=== PATIENT | female | born 1950 | race Caucasian/White ===

== ENCOUNTER 2023-08-04 12:18 | Observation (INO) ==
[2023-08-04] MEDS: NS 1,000 ML IV 1,000 ML IV SCH (14:14)
[2023-08-04 14:48] LABS: ALBUMIN 2.7 g/dL (3.4-5.0); CALCIUM 8.5 mg/dL (8.5-10.1); COR CA(FOR HYPOALB) 9.5 mg/dL (8.5-10.1); CREATININE 1.32 mg/dL (0.55-1.02); MAGNESIUM 1.4 mg/dL (2.0-2.9); POTASSIUM 4.6 mmol/L (3.5-5.1); TOTAL PROTEIN 6.1 g/dL (6.4-8.2)
[2023-08-04 15:09] LABS: BASOPHILS # (AUTO) 0.1 X10^3/uL (0.0-0.1); BASOPHILS % (AUTO) 0.8 % (0.2-1.0); EOSINOPHILS # (AUTO) 0.4 x10^3/uL (0.0-0.2); LYMPHOCYTES # (AUTO) 1.1 X10^3/uL (1.3-2.9); LYMPHOCYTES % (AUTO) 12.5 % (21.0-51.0); MEAN CORPUSCULAR HEMOGLOBIN 27.6 pg (27.0-34.0); MEAN CORPUSCULAR HGB CONC 32.4 g/dL (33.0-35.0); MEAN CORPUSCULAR VOLUME 85.2 fL (80.0-100.0); MEAN PLATELET VOLUME 10.5 fL (7.4-11.0); MONOCYTES # (AUTO) 0.4 x10^3/uL (0.3-0.8); MONOCYTES % (AUTO) 4.5 % (0.0-13.0); NEUTROPHILS # (AUTO) 6.7 x10^3/uL (2.2-4.8); NEUTROPHILS % (AUTO) 77.2 % (42.0-75.0); PLATELET COUNT 184 X10^3/uL (150.0-450.0); RED BLOOD COUNT 4.35 X10^6/uL (3.5-5.4); RED CELL DISTRIBUTION WIDTH 15.6 % (11.6-16.5); WHITE BLOOD COUNT 8.7 X10^3/uL (3.6-10.0)
[2023-08-04] MEDS ORDERED: CONSULT PHARMACY - POTASSIUM & MAGNESIUM XX SCH (16:00)
[2023-08-04] MEDS ORDERED: NovoLIN R (or HumuLIN R) SUBCUT PRN (16:09)
[2023-08-04 16:18] LABS: BILIRUBIN,URINE NEGATIVE (NEGATIVE); BLOOD/HEMOGLOBIN,URINE NEGATIVE (NEGATIVE); GLUCOSE, URINE 4+ (NEGATIVE); KETONES,URINE NEGATIVE (NEGATIVE); LEUKOCYTE ESTERASE ,URINE NEGATIVE (NEGATIVE); NITRITES,URINE NEGATIVE (NEGATIVE); PROTEIN,URINE NEGATIVE (NEGATIVE); UROBILINOGEN,URINE NORMAL (NORMAL)
[2023-08-04 16:19] LABS: APPEARANCE,URINE CLEAR (CLEAR); COLOR,URINE YELLOW (YELLOW)
[2023-08-04] MEDS: NS 1,000 ML IV 1,000 ML with MAGNESIUM SULFATE 50% INJ VIAL 1 G IV SCH (17:13)
[2023-08-04] MEDS: FLAGYL IV PREMIX 500 MG BAG 500 MG/100 ML BAG IV SCH (17:14)
[2023-08-04] MEDS ORDERED: PATIENT'S HOME MEDICATION (Alprazolam 0.5 mg tablet) PO PRN (17:30)
--- NOTE | 2023-08-04 17:37 | DR.H&P ---
H&P History & Physical for Day of: H&P Date: 08/04/23 Chief Complaint Chief Complaint: abdominal pain, diarrhea, weakness Allergies Allergies Allergy/AdvReac Type Severity Reaction Status Date / Time No Known Drug Allergies Allergy Verified 08/04/23 14:15 History of Present Illness History of Present Illness: PT IS 72 WF, DIRECT ADMIT FROM DR MORENO OFFICE WITH CO LOWER ABDOMINAL CRAMPING, PAIN WITH DIARRHEA FOR SEVERAL WEEKS. PT STATES SHE WAS SEEN IN ER AND DIAGNOSED WITH COLITIS. PT CO WEAKNESS AND MUSCLE CRAMPS. PT HAS PMH OF DM AND LOW BS IN 50S RECENTLY. PT HAS HTN, OA, SIDRA, MDD, GERD, SPINAL DDD AND NEUROPATHY. PT ADMITTED FOR TREATMENT AND EVALUATION OF ACUTE ILLNESS. Past Medical History Past Medical History: CVA, Diabetes, Hypertension and [place] Past Surgical History Surgical History: Appendectomy, Cholecystectomy and Hysterectomy Family History Family Medical History: Diabetes Mellitus Medications Home Medications: Home Medications Medication Instructions Recorded Confirmed Type bupropion HCl 150 mg 24 hr tablet, 150 mg PO QAM 09/08/22 08/04/23 History extended release buspirone 7.5 mg tablet 7.5 mg PO BID 09/08/22 08/04/23 History famotidine 20 mg tablet 20 mg PO BID 09/08/22 08/04/23 History fenofibrate nanocrystallized 145 145 mg PO QDAY 09/08/22 08/04/23 History mg tablet gabapentin 800 mg tablet 800 mg PO TID 09/08/22 08/04/23 History hydroxychloroquine 200 mg tablet 200 mg PO QDAY 09/08/22 08/04/23 History lisinopril 20 mg tablet 20 mg PO BID 09/08/22 08/04/23 History nebivolol 10 mg tablet 10 mg PO QDAY 09/08/22 08/04/23 History nitroglycerin 0.4 mg sublingual See Rx Instructions .Route 09/08/22 08/04/23 History tablet .COMPLEX PRN Chest Pain pravastatin 40 mg tablet 40 mg PO HS 09/08/22 08/04/23 History alprazolam 0.5 mg tablet 0.5 mg PO TID PRN anxiey 07/27/23 08/04/23 History aspirin 81 mg chewable tablet 81 mg PO QDAY 07/27/23 08/04/23 History cariprazine 1.5 mg capsule 1.5 mg PO QDAY 07/27/23 08/04/23 History (Vraylar) clonidine HCl 0.1 mg tablet 0.1 mg PO BID 07/27/23 08/04/23 History dapagliflozin propanediol 10 mg 10 mg PO QDAY 07/27/23 08/04/23 History tablet (Farxiga) duloxetine 60 mg capsule,delayed 60 mg PO QDAY 07/27/23 08/04/23 History release meclizine 25 mg tablet 25 mg PO TID PRN 07/27/23 08/04/23 History trazodone 100 mg tablet 100 mg PO QPM 07/27/23 08/04/23 History Labs 08/04/23 14:15 08/04/23 14:15 Labs: Laboratory WBC 8.7 X10^3/uL (3.6-10.0) 08/04/23 14:15 RBC 4.35 X10^6/uL (3.5-5.4) 08/04/23 14:15 Hgb 12.0 g/dL (12.0-16.0) 08/04/23 14:15 Hct 37.0 % (36.0-47.0) 08/04/23 14:15 MCV 85.2 fL (80.0-100.0) 08/04/23 14:15 MCH 27.6 pg (27.0-34.0) 08/04/23 14:15 MCHC 32.4 g/dL (33.0-35.0) L 08/04/23 14:15 RDW 15.6 % (11.6-16.5) 08/04/23 14:15 Plt Count 184 X10^3/uL (150.0-450.0) 08/04/23 14:15 MPV 10.5 fL (7.4-11.0) 08/04/23 14:15 Neut % (Auto) 77.2 % (42.0-75.0) H 08/04/23 14:15 Lymph % (Auto) 12.5 % (21.0-51.0) L 08/04/23 14:15 [place] % (Auto) 4.5 % (0.0-13.0) 08/04/23 14:15 Eos % (Auto) 5.0 % (0.9-2.9) H 08/04/23 14:15 Baso % (Auto) 0.8 % (0.2-1.0) 08/04/23 14:15 Neut # (Auto) 6.7 x10^3/uL (2.2-4.8) H 08/04/23 14:15 Lymph # (Auto) 1.1 X10^3/uL (1.3-2.9) L 08/04/23 14:15 [place] # (Auto) 0.4 x10^3/uL (0.3-0.8) 08/04/23 14:15 Eos # (Auto) 0.4 x10^3/uL (0.0-0.2) H 08/04/23 14:15 Baso # (Auto) 0.1 X10^3/uL (0.0-0.1) 08/04/23 14:15 Absolute Nucleated RBC 0.0 /100WBC 08/04/23 14:15 Sodium 132 mmol/L (136-145) L 08/04/23 14:15 Corrected Sodium 141 mmol/L (136-145) 08/04/23 14:15 Potassium 4.6 mmol/L (3.5-5.1) 08/04/23 14:15 Chloride 97 mmol/L (98-107) L 08/04/23 14:15 Carbon Dioxide 30.0 mmol/L (21-32) 08/04/23 14:15 BUN 11 mg/dL (7-18) 08/04/23 14:15 Creatinine 1.32 mg/dL (0.55-1.02) H 08/04/23 14:15 Est GFR (MDRD) Af Amer 51 (>60) L 08/04/23 14:15 Est GFR (MDRD) Non-Af 42 (>60) L 08/04/23 14:15 Glucose 460 mg/dL (65-99) H 08/04/23 14:15 POC Glucose (mg/dL) 390 mg/dL (65-99) H 08/04/23 17:27 Calcium 8.5 mg/dL (8.5-10.1) 08/04/23 14:15 Corrected Calcium 9.5 mg/dL (8.5-10.1) 08/04/23 14:15 Magnesium 1.4 mg/dL (2.0-2.9) L 08/04/23 14:15 Total Bilirubin 0.40 mg/dL (0.2-1.0) 08/04/23 14:15 AST 19 Units/L (15-37) 08/04/23 14:15 ALT 25 Units/L (12-78) 08/04/23 14:15 Alkaline Phosphatase 123 Units/L (46-116) H 08/04/23 14:15 Total Protein 6.1 g/dL (6.4-8.2) L 08/04/23 14:15 Albumin 2.7 g/dL (3.4-5.0) L 08/04/23 14:15 Globulin 3.4 g/dL (2.5-4.5) 08/04/23 14:15 Albumin/Globulin Ratio 0.8 Ratio (1.1-2.1) L 08/04/23 14:15 Specimen Type Clean catch urine 08/04/23 15:57 Urine Color Yellow (YELLOW) 08/04/23 15:57 Urine Appearance Clear (CLEAR) 08/04/23 15:57 Urine pH 6.0 (5.0 - 8.0) 08/04/23 15:57 Ur Specific [place] 1.010 (1.000-1.030) 08/04/23 15:57 Urine Protein Negative (NEGATIVE) 08/04/23 15:57 Urine Glucose (UA) 4+ (NEGATIVE) 08/04/23 15:57 Urine Ketones Negative (NEGATIVE) 08/04/23 15:57 Urine Blood Negative (NEGATIVE) 08/04/23 15:57 Urine Nitrite Negative (NEGATIVE) 08/04/23 15:57 Urine Bilirubin Negative (NEGATIVE) 08/04/23 15:57 Urine Urobilinogen Normal (NORMAL) 08/04/23 15:57 Ur Leukocyte Esterase Negative (NEGATIVE) 08/04/23 15:57 Review of Systems Constitutional: Weakness and Malaise Eyes: No Symptoms Reported ENT: No Symptoms Reported Respiratory: Shortness of Breath Cardiovascular: Palpitations Gastrointestinal: Nausea, Abdominal Pain and Diarrhea Genitourinary: Dysuria Musculoskeletal: Back Pain Skin: No Symptoms Reported Neurological: Weakness Physical Exam Vital Signs: Vital Signs Temperature 97.3 F Pulse Rate [Left Brachial] 78 Respiratory Rate 20 Blood Pressure [Left Arm] 147/64 O2 Sat by Pulse Oximetry 96 Oriented: Normal Eyes: Normal Ear: Normal Nose: Normal Throat: Normal Respiratory: RLL Diminished and LLL Diminished Cardiovascular: Normal Auscultation: Bowel Sounds: Increased Palpation: Normal Tenderness: LUQ and LLQ Skin: Decreased [place]urg[place] Musculoskeletal: Back:Lumbar Psychiatric: Depression Mood Description: Depressed Affect: Depressed Speech Pattern: Clear Assessment/Plan (1) Colitis: Narrative Support Text: IV HYDRATION, STOOL STUDIES ON ADMISSION CT ABD PELVIS WITH CONTRAST IV FLAGYL, VERIFY HOME MEDICATION BS CONTROL, BP MONITORING Status: Acute (2) Diabetes: Status: Acute (3) Hypertension: Status: Acute
[2023-08-04 17:45] LABS: AMYLASE 28 Units/L (25-115); LIPASE 60 Units/L (16-77)
--- NOTE | 2023-08-04 18:02 | RAD ---
EXAM:ACUTE ABDOMEN SERI ESHISTORY:ABDOMINAL PAIN, COLITIS;COMPARISON:None.FINDINGS:The trachea is midline. The cardiac silhouette is unremarkable. The lungs are clear without focal infiltrate or effusion. The bony thorax is unremarkable.Flat plate and upright evaluation of the abdomen demonstrates a normal bowel gas pattern. There is a moderate amount of fecal material throughout the colon. Surgical clips right upper quadrant. No pathological soft tissue mass or calcification can be observed. The bony structures are grossly intact.IMPRESSION:1. No acute cardiopulmonary disease.2. No evidence for acute abdominal pathology identified.THIS IS AN ELECTRONICALLY VERIFIED FINAL REPORT08/04/2023 5:59 PM - Electronically signed by Yohan Quiñones MD
[2023-08-04] MEDS: NovoLIN R (or HumuLIN R) SUBCUT PRN (18:24)
[2023-08-04] MEDS ORDERED: SNACK - Diabetic Appropriate PO SCH (20:00)
[2023-08-04] MEDS ORDERED: ZESTRIL TAB 20 MG ONE (20:18)
[2023-08-04] MEDS: ZOFRAN INJ 4 MG VIAL IVP PRN (20:26)
[2023-08-04] MEDS: PEPCID TAB 20 MG PO SCH (20:30)
[2023-08-04] MEDS: DESYREL PO SCH (20:31)
[2023-08-04] MEDS: PRAVACHOL PO SCH (20:31)
[2023-08-04] MEDS: ZESTRIL TAB 20 MG PO SCH (20:32)
[2023-08-04] MEDS: SNACK - Diabetic Appropriate PO SCH (20:54)
[2023-08-04] MEDS: ALPRAZOLAM ODT PO PRN (23:27)
[2023-08-05] MEDS: TYLENOL 325 MG TAB PO PRN (02:50)
[2023-08-05] MEDS: PROVENTIL NEB TX 0.083% 2.5MG/ 3ML NEB SCH (07:00)
[2023-08-05] MEDS ORDERED: PROVENTIL NEB TX 0.083% 2.5MG/ 3ML NEB PRN (07:00)
[2023-08-05 07:25] LABS: BASOPHILS # (AUTO) 0.1 X10^3/uL (0.0-0.1); BASOPHILS % (AUTO) 1.2 % (0.2-1.0); EOSINOPHILS # (AUTO) 0.8 x10^3/uL (0.0-0.2); EOSINOPHILS % (AUTO) 11.3 % (0.9-2.9); HEMATOCRIT 30.6 % (36.0-47.0); HEMOGLOBIN 10.1 g/dL (12.0-16.0); LYMPHOCYTES % (AUTO) 27.5 % (21.0-51.0); MEAN CORPUSCULAR HEMOGLOBIN 27.8 pg (27.0-34.0); MEAN CORPUSCULAR VOLUME 84.4 fL (80.0-100.0); MEAN PLATELET VOLUME 10.2 fL (7.4-11.0); MONOCYTES # (AUTO) 0.6 x10^3/uL (0.3-0.8); MONOCYTES % (AUTO) 7.7 % (0.0-13.0); NEUTROPHILS # (AUTO) 3.7 x10^3/uL (2.2-4.8); NEUTROPHILS % (AUTO) 52.3 % (42.0-75.0); PLATELET COUNT 171 X10^3/uL (150.0-450.0); RED BLOOD COUNT 3.63 X10^6/uL (3.5-5.4); RED CELL DISTRIBUTION WIDTH 15.5 % (11.6-16.5); WHITE BLOOD COUNT 7.1 X10^3/uL (3.6-10.0)
[2023-08-05 07:36] LABS: ALANINE AMINOTRANSFERASE 16 Units/L (12-78); ALBUMIN 2.1 g/dL (3.4-5.0); ALKALINE PHOSPHATASE 103 Units/L (46-116); ASPARTATE AMINO TRANSFERASE 15 Units/L (15-37); BLOOD UREA NITROGEN 12 mg/dL (7-18); CALCIUM 8.1 mg/dL (8.5-10.1); CARBON DIOXIDE 28.7 mmol/L (21-32); CHLORIDE 105 mmol/L (98-107); COR CA(FOR HYPOALB) 9.6 mg/dL (8.5-10.1); COR NA(FOR HYPERGLY) 139 mmol/L (136-145); GLUCOSE 204 mg/dL (65-99); MAGNESIUM 1.6 mg/dL (2.0-2.9); POTASSIUM 3.7 mmol/L (3.5-5.1); SODIUM 137 mmol/L (136-145); TOTAL PROTEIN 5.4 g/dL (6.4-8.2); eGFR NON BLACK RACES 52 (>60)
[2023-08-05] MEDS ORDERED: NS 100 ML IV 100 ML ONE (08:28)
[2023-08-05] MEDS ORDERED: OMNIPAQUE 350 mg/mL 100 mL BTL 100 ML ONE (08:28)
[2023-08-05] MEDS ORDERED: READI-CAT 2 ONE (08:29)
[2023-08-05] MEDS ORDERED: PATIENT'S HOME MEDICATION (Dapagliflozin Propanediol [Farxiga] 10 mg tablet) PO SCH (09:00)
[2023-08-05] MEDS ORDERED: ZESTRIL TAB 20 MG ONE ×2 (09:23→20:28)
[2023-08-05] MEDS: WELLBUTRIN XL 150 MG (DAILY) PO SCH (09:27)
[2023-08-05] MEDS: LOVENOX INJ 40 MG SYR SC SCH (09:27)
[2023-08-05] MEDS: FARXIGA PO SCH (09:27)
[2023-08-05] MEDS: TRICOR TAB 145 MG PO SCH (09:28)
[2023-08-05] MEDS: PATIENT'S HOME MEDICATION (Cariprazine [Vraylar] 1.5 mg capsule) PO SCH (11:36)
[2023-08-05 12:33] LABS: CRYPTOSPORIDIUM PARVUM ANTIGEN NEGATIVE (NEGATIVE); GIARDIA LAMBLIA ANTIGEN NEGATIVE (NEGATIVE)
--- NOTE | 2023-08-05 14:32 | CT ---
EXAM:ABDCMEN/PELVIS WITH CONHISTORY:LLQ PAIN, COLITIS;COMPARISON:CT abdomen and pelvis 11/18/2020TECHNIQUE:Multiple CT axial images of the abdomen and pelvis were obtained with IV contrast. Coronal and sagittal images were reconstructed. Dose reduction techniques included Automated Exposure Control (AEC) and adjustment of mA and kV.FINDINGS:The lung bases are clear. Heart size is normal.The liver is normal in size and configuration. Surgical clips are present in the gallbladder fossa from a cholecystectomy. There is very mild dilatation of the intrahepatic collecting system, likely a reservoir effect from having had a cholecystectomy. I believe the finding is stable when compared to the non contrasted study 11/18/2020.The spleen is normal in size and shape. The adrenal glands are normal. The pancreas is normal.Renal enhancement is uniform and symmetric with no solid mass. There is no hydronephrosis or significant perirenal edema. The bladder is normally distended. It has no wall thickening or perivesical edema.The bowel is not dilated. There is no wall thickening in the bowel or edema around the bowel. Surgical clips are present from appendectomy. No evidence for acute bowel pathology.Degenerative changes are present in the thoracic spine.IMPRESSION:1. No acute finding or significant abnormalityTHIS IS AN ELECTRONICALLY VERIFIED FINAL REPORT08/05/2023 2:29 PM - Electronically signed by Wale Whitlock MD
[2023-08-05] MEDS: ZITHROMAX TAB 250 MG PO SCH (17:01)
[2023-08-06 08:52] VITALS: BMI 30.2
[2023-08-06] MEDS: ZOFRAN INJ 4 MG VIAL IVP ONE (09:28)
[2023-08-06] MEDS: NORCO 5/325 MG TAB PO ONE (09:28)
[2023-08-06 09:29] VITALS: RESP 18
[2023-08-06] MEDS: ZESTRIL TAB 20 MG ONE (09:29)
[2023-08-06 09:52] VITALS: BP 145/67; PULSE 77; TEMP 98.3; O2SAT 95
--- NOTE | 2023-08-06 11:54 | PCM.DCPLAN ---
DISCHARGE SUMMARY Admission Date Date of Admission: 08/04/23 Discharge Date Discharge Date: 08/06/23 Admission Diagnoses (1) Colitis: Status: Acute (2) Diabetes: Status: Acute (3) Hypertension: Status: Acute Discharge Diagnoses Discharge Diagnosis: ADD GASTRITIS AND CAMPYLOBACTER GASTROENTERITIS - SAME ADMISSION Discharge Medications Discharge Medications: Home Medication List azithromycin 250 mg tablet 500 mg PO DAILY 5 days #10 tabs 08/06/23 [Rx] diphenoxylate-atropine 2.5 mg-0.025 mg tablet (Lomotil) 1 tab PO Q4H PRN Diarrhea #30 tabs 08/06/23 [Rx] ondansetron 8 mg disintegrating tablet 8 mg PO Q8H nausea #30 tabs 08/06/23 [Rx] Prescriptions: azithromycin KEZIA,LUIS diphenoxylate-atropine [Lomotil] KEZIA,LUIS ondansetron KEZIA,[facility] Hospital Course Vital Signs: Vital Signs Temperature 98.3 F Temperature 98.1 F Pulse Rate [Left Brachial] 77 Pulse Rate [Left Brachial] 70 Respiratory Rate 18 Respiratory Rate 18 Respiratory Rate 20 Blood Pressure [Left Arm] 145/67 Blood Pressure [Left Arm] 162/70 O2 Sat by Pulse Oximetry 95 O2 Sat by Pulse Oximetry 94 Latest Lab Results: Laboratory Last Values WBC 7.1 X10^3/uL (3.6-10.0) 08/05/23 07:05 RBC 3.63 X10^6/uL (3.5-5.4) 08/05/23 07:05 Hgb 10.1 g/dL (12.0-16.0) L 08/05/23 07:05 Hct 30.6 % (36.0-47.0) L 08/05/23 07:05 MCV 84.4 fL (80.0-100.0) 08/05/23 07:05 MCH 27.8 pg (27.0-34.0) 08/05/23 07:05 MCHC 33.0 g/dL (33.0-35.0) 08/05/23 07:05 RDW 15.5 % (11.6-16.5) 08/05/23 07:05 Plt Count 171 X10^3/uL (150.0-450.0) 08/05/23 07:05 MPV 10.2 fL (7.4-11.0) 08/05/23 07:05 Neut % (Auto) 52.3 % (42.0-75.0) 08/05/23 07:05 Lymph % (Auto) 27.5 % (21.0-51.0) 08/05/23 07:05 [place] % (Auto) 7.7 % (0.0-13.0) 08/05/23 07:05 Eos % (Auto) 11.3 % (0.9-2.9) H 08/05/23 07:05 Baso % (Auto) 1.2 % (0.2-1.0) H 08/05/23 07:05 Neut # (Auto) 3.7 x10^3/uL (2.2-4.8) 08/05/23 07:05 Lymph # (Auto) 2.0 X10^3/uL (1.3-2.9) 08/05/23 07:05 [place] # (Auto) 0.6 x10^3/uL (0.3-0.8) 08/05/23 07:05 Eos # (Auto) 0.8 x10^3/uL (0.0-0.2) H 08/05/23 07:05 Baso # (Auto) 0.1 X10^3/uL (0.0-0.1) 08/05/23 07:05 Absolute Nucleated RBC 0.0 /100WBC 08/05/23 07:05 Sodium 137 mmol/L (136-145) 08/05/23 06:25 Corrected Sodium 139 mmol/L (136-145) 08/05/23 06:25 Potassium 3.7 mmol/L (3.5-5.1) 08/05/23 06:25 Chloride 105 mmol/L (98-107) 08/05/23 06:25 Carbon Dioxide 28.7 mmol/L (21-32) 08/05/23 06:25 BUN 12 mg/dL (7-18) 08/05/23 06:25 Creatinine 1.10 mg/dL (0.55-1.02) H 08/05/23 06:25 Est GFR (MDRD) Af Amer > 60 (>60) 08/05/23 06:25 Est GFR (MDRD) Non-Af 52 (>60) L 08/05/23 06:25 Glucose 204 mg/dL (65-99) H 08/05/23 06:25 POC Glucose (mg/dL) 191 mg/dL (65-99) H 08/06/23 05:29 Calcium 8.1 mg/dL (8.5-10.1) L 08/05/23 06:25 Corrected Calcium 9.6 mg/dL (8.5-10.1) 08/05/23 06:25 Magnesium 1.6 mg/dL (2.0-2.9) L 08/05/23 06:25 Total Bilirubin 0.30 mg/dL (0.2-1.0) 08/05/23 06:25 AST 15 Units/L (15-37) 08/05/23 06:25 ALT 16 Units/L (12-78) 08/05/23 06:25 Alkaline Phosphatase 103 Units/L (46-116) 08/05/23 06:25 Total Protein 5.4 g/dL (6.4-8.2) L 08/05/23 06:25 Albumin 2.1 g/dL (3.4-5.0) L 08/05/23 06:25 Globulin 3.3 g/dL (2.5-4.5) 08/05/23 06:25 Albumin/Globulin Ratio 0.6 Ratio (1.1-2.1) L 08/05/23 06:25 Amylase 28 Units/L (25-115) 08/04/23 14:15 Lipase 60 Units/L (16-77) 08/04/23 14:15 Specimen Type Clean catch urine 08/04/23 15:57 Urine Color Yellow (YELLOW) 08/04/23 15:57 Urine Appearance Clear (CLEAR) 08/04/23 15:57 Urine pH 6.0 (5.0 - 8.0) 08/04/23 15:57 Ur Specific [place] 1.010 (1.000-1.030) 08/04/23 15:57 Urine Protein Negative (NEGATIVE) 08/04/23 15:57 Urine Glucose (UA) 4+ (NEGATIVE) 08/04/23 15:57 Urine Ketones Negative (NEGATIVE) 08/04/23 15:57 Urine Blood Negative (NEGATIVE) 05/08/24 15:57 Urine Nitrite Negative (NEGATIVE) 08/04/23 15:57 Urine Bilirubin Negative (NEGATIVE) 08/04/23 15:57 Urine Urobilinogen Normal (NORMAL) 08/04/23 15:57 Ur Leukocyte Esterase Negative (NEGATIVE) 08/04/23 15:57 Stool Occult Blood Cancelled 08/05/23 10:50 Stl Occult Blood (IFOB) Negative (NEGATIVE) 08/05/23 10:50 Stl C. diff Tox B Gene Negative (NEGATIVE) 08/05/23 10:50 Stl C. diff [id number] Presumptive negative (NEGATIVE) 08/05/23 10:50 Stool H. pylori Ag Negative (NEGATIVE) 08/05/23 10:50 Cryptosporid parvum Ag Negative (NEGATIVE) 08/05/23 10:50 Giardia lamblia Ag Negative (NEGATIVE) 08/05/23 10:50 Hospital Course: PATIENT IS A 72 YEAR OLD WHITE FEMALE WHO WAS A DIRECT ADMIT FROM DR. MORENO'S OFFICE ON 08/04/23 WITH COMPLAINTS OF LOWER ABDOMINAL CRAMPING WITH DIARRHEA- ONGOING FOR SEVERAL WEEKS. PATIENT HAD REPORTEDLY BEEN SEEN IN LOCAL ER AND DIAGNOSED WITH COLITIS. UPON ADMISSION, WE STARTED THE PATIENT ON IV HYDRATION, IV FLAGYL AND OBTAINED STOOL STUDIES AND CT ABDOMEN AND PELVIS WITH CONTRAST. ADMISSION LABS: HGB 12.0, WBC 8.7, BUN 12/CREATININE 1.10. CT ABDOMEN AND PELVIS SHOWED NO ACUTE FINDING OR SIGNIFICANT ABNORMALITY. STOOL STUDIES OBTAINED YESTERDAY SHOWED POSITIVE FOR CAMPY AND SHE WAS STARTED ON AZITHROMYCIN. AM LABS: HGB 10.1, WBC 7.1, BUN 12/CREATININE 1.10. PATIENT STATES THAT SHE IS FEELING MUCH IMPROVED, SO WE WILL ALLOW HER TO DISCHARGE HOME ON PO ABX, LOMOTIL AND ZOFRAN. SHE WILL NEED TO FOLLOW UP WITH HER PRIMARY CARE PROVIDER AND HAS AN APPOINTMENT SCHEDULED FOR 08/13/23 AT 10:15AM. PLEASE SEE DISCHARGE PLAN FOR LIST OF DISCHARGE MEDICATIONS AND MODIFICATIONS THAT WE MADE, ELECTRONIC MEDICAL RECORD FOR DIAGNOSTIC TESTS AND LABS. THE PATIENT WAS INSTRUCTED TO RETURN TO THE ER IF CONDITION CHANGED OR WORSENED UNEXPECTEDLY.
== END 2023-08-06 11:27 | disposition home health service (06) ==
LOC: MED/SURG
PROVIDERS: ADMIT Internal Medicine; ATTEND Internal Medicine
DX: I10 Essential (primary) hypertension; F41.8 Other specified anxiety disorders; A04.5 Campylobacter enteritis; K29.00 Acute gastritis without bleeding; R26.89 Other abnormalities of gait and mobility; R53.1 Weakness; E11.65 Type 2 diabetes mellitus with hyperglycemia; E87.1 Hypo-osmolality and hyponatremia; Z65.8 Other specified problems related to psychosocial circumstances; R10.84 Generalized abdominal pain

== ENCOUNTER 2023-12-11 12:45 | Observation (INO) ==
[2023-12-11 13:11] VITALS: BMI 28.1
--- NOTE | 2023-12-11 13:15 | DR.CP ---
HPI Time Seen Time Seen by Provider: 12/11/23 13:14 PCP Primary Care Physician: KOMAL White Complaint Chief Complaint:: Pt states that around 8am she woke up this morning with a sudden onset of left sided chest pain described as sharp stabbing in nature. The pt took one nitroglycerin and the pain was completely relieved. Pt also states that she fell a few weeks ago and has had a sore sacrum every since. COVID-19 Coronavirus risk:travel/contact w/high risk person: No Has patient experienced Coronavirus symptoms: No Reviewed Nurses Notes Review: Yes Source History Provided: EMS Mode of Arrival Mode of Arrival: Ambulatory Timing Onset of Chief Complaint: 12/11/23 Location Chest Pain Radiation Location: None Associated Signs and Symptoms Associated Signs and Symptoms: None PMH PMH Past Medical History: Yes Past Medical History: Anxiety, Arthritis, Coronary Artery Disease, CVA, Depression, Diabetes, Dyslipidemia, GERD, Hypertension and [place] Past Surgical History: Yes Surgical History: Appendectomy, Cholecystectomy and Hysterectomy Family History History of Family Medical Conditions: Yes Family Medical History: Diabetes Mellitus, [place], Coronary Artery Disease and Hypertension Social History Does patient currently use any type of tobacco product: No Have you used tobacco products in the last 12 months: No Type of Tobacco Use: None Does any household member use tobacco: No Alcohol Use: None Do you use any recreational Drugs:: No Lives With: Alone Lives Where: Home Travel Risk Coronavirus risk:travel/contact w/high risk person: No Has patient experienced Coronavirus symptoms: No Infectious screening In the last 2 months have you had wt loss of >10#?: NO Have you had fever, night sweats or hemotysis?: No Have you traveled outside the country in the last 6 months?: No Isolation: Standard ROS Review of Systems Constitutional: No Symptoms Reported, Weakness and Fatigue; negative Fever Eyes: No Symptoms Reported ENTM: No Symptoms Reported; negative Nose Discharge or Nose Congestion Respiratoy: No Symptoms Reported; negative Moist Cough or Short of Breath Cardiovascular: No Symptoms Reported Gastrointestinal/Abdominal: No Symptoms Reported; negative Abdominal Pain, Diarrhea or Vomiting Genitourinary: No Symptoms Reported; negative Dysuria Neurological: Weakness; negative Headache or Dizziness Musculoskeletal: No Symptoms Reported; negative Muscle Pain Integumentary: No Symptoms Reported Hematologic/Lymphatic: No Symptoms Reported Endocrine: No Symptoms Reported; negative Increased Thirst or Increased Urine Psychiatric: No Symptoms Reported All Other Systems: Reviewed and Negative PE Vitals Vitals: Vital Signs Pulse Rate 80 Pulse Rate 90 Pulse Rate 91 Pulse Rate 91 Respiratory Rate 18 Respiratory Rate 39 Respiratory Rate 29 Respiratory Rate 27 Respiratory Rate 24 O2 Sat by Pulse Oximetry 95 O2 Sat by Pulse Oximetry 97 General General Appearance: Alert and In No Apparent Distress Head Head Exam: Normal Inspection and Atraumatic Eyes Eye exam: Normal Appearance, PERRL and EOMI; negative Scleral Icterus or Conjunctival Injection ENT ENT Exam: Normal Exam, Normal Oropharynx, Normal External Ear Exam and TM's Normal Bilaterally Chest Chest Inspection: Normal Inspection and Symmetric Chest Wall Rise; negative Tenderness Respiratory Respiratory Exam: Normal Lung Sounds Bilat; negative Accessory Muscle Use, Chest Wall Tenderness or Respiratory Distress Respiratory Exam: Bilateral: Rhonchi Cardiovascular Cardiovascular Exam: Regular Rate, Normal Rhythm and Normal Heart Sounds; negative Systolic Murmur or Diastolic Murmur Pulse: Normal Abdominal Exam Abdominal Exam: Normal Inspection, Normal Bowel Sounds and Soft; negative Tenderness Extremities Extremities Exam: Normal Inspection and Normal Capillary Refill Back Back Exam: Normal Inspection; negative (R) CVA Tenderness or (L) CVA Tenderness Neurologic Neurological Exam: Alert and Oriented X3; negative Motor Sensory Deficit Psychiatric Psychiatric Exam: Normal Affect and Normal Mood Skin Skin Exam: Warm and Intact MDM Differential Diagnosis Differential Diagnosis: Angina, CHF, Myocardial Infarction, Pericarditis, Pleuritis, Pneumonia, Pneumothorax and Pulmonary Embolus COURSE Treatment Treatment: See orders done while patient was in the emergency room. D-dimer is elevated above patient have poor renal function at this time. She is also dehydrated. Patient is being given some IV fluids and will be at admitted to hospital for further management the CTA will be done after IV fluids and improved renal function. Chest pain is intermittent and is not present at this time(8:40 PM). Education/Counseling Education/Counseling: Patient ROR Labs Reviewed Laboratory Results Reviewed?: Yes 12/11/23 13:40 12/11/23 13:40 Laboratory: WBC 13.8 X10^3/uL (3.6-10.0) H 12/11/23 13:40 RBC 3.98 X10^6/uL (3.5-5.4) 12/11/23 13:40 Hgb 10.9 g/dL (12.0-16.0) L 12/11/23 13:40 Hct 33.8 % (36.0-47.0) L 12/11/23 13:40 MCV 84.8 fL (80.0-100.0) 12/11/23 13:40 MCH 27.4 pg (27.0-34.0) 12/11/23 13:40 MCHC 32.3 g/dL (33.0-35.0) L 12/11/23 13:40 RDW 14.6 % (11.6-16.5) 12/11/23 13:40 Plt Count 266 X10^3/uL (150.0-450.0) 12/11/23 13:40 MPV 9.8 fL (7.4-11.0) 12/11/23 13:40 Neut % (Auto) 83.1 % (42.0-75.0) H 12/11/23 13:40 Lymph % (Auto) 6.8 % (21.0-51.0) L 12/11/23 13:40 [place] % (Auto) 7.3 % (0.0-13.0) 12/11/23 13:40 Eos % (Auto) 2.4 % (0.9-2.9) 12/11/23 13:40 Baso % (Auto) 0.4 % (0.2-1.0) 12/11/23 13:40 Neut # (Auto) 11.4 x10^3/uL (2.2-4.8) H 12/11/23 13:40 Lymph # (Auto) 0.9 X10^3/uL (1.3-2.9) L 12/11/23 13:40 [place] # (Auto) 1.0 x10^3/uL (0.3-0.8) H 12/11/23 13:40 Eos # (Auto) 0.3 x10^3/uL (0.0-0.2) H 12/11/23 13:40 Baso # (Auto) 0.1 X10^3/uL (0.0-0.1) 12/11/23 13:40 Absolute Nucleated RBC 0.1 /100WBC 12/11/23 13:40 D-Dimer 0.79 ug/ml (0.0-0.57) H 12/11/23 13:40 Sodium 129 mmol/L (136-145) L 12/11/23 13:40 Corrected Sodium 133 mmol/L (136-145) L 12/11/23 13:40 Potassium 5.0 mmol/L (3.5-5.1) 12/11/23 13:40 Chloride 94 mmol/L (98-107) L 12/11/23 13:40 Carbon Dioxide 29.3 mmol/L (21-32) 12/11/23 13:40 BUN 26 mg/dL (7-18) H 12/11/23 13:40 Creatinine 1.85 mg/dL (0.55-1.02) H 12/11/23 13:40 Est GFR (MDRD) Af Amer 34 (>60) L 12/11/23 13:40 Est GFR (MDRD) Non-Af 28 (>60) L 12/11/23 13:40 Glucose 277 mg/dL (65-99) H 12/11/23 13:40 Calcium 9.3 mg/dL (8.5-10.1) 12/11/23 13:40 Corrected Calcium 10.3 mg/dL (8.5-10.1) H 12/11/23 13:40 Total Bilirubin 0.40 mg/dL (0.2-1.0) 12/11/23 13:40 AST 46 Units/L (15-37) H 12/11/23 13:40 ALT 49 Units/L (12-78) 12/11/23 13:40 Alkaline Phosphatase 143 Units/L (46-116) H 12/11/23 13:40 Creatine Kinase 71 Units/L (26-192) 12/11/23 20:18 Troponin I High Sens 7.5 ng/L (4.0-60.0) 12/11/23 20:18 B-Natriuretic Peptide 24.1 pg/mL (0-79) 12/11/23 13:40 Total Protein 7.5 g/dL (6.4-8.2) 12/11/23 13:40 Albumin 2.8 g/dL (3.4-5.0) L 12/11/23 13:40 Globulin 4.7 g/dL (2.5-4.5) H 12/11/23 13:40 Albumin/Globulin Ratio 0.6 Ratio (1.1-2.1) L 12/11/23 13:40 Specimen Type Clean catch urine 12/11/23 19:04 Urine Color Pale yellow (YELLOW) 12/11/23 19:04 Urine Appearance Clear (CLEAR) 12/11/23 19:04 Urine pH 6.0 (5.0 - 8.0) 12/11/23 19:04 Ur Specific [place] 1.020 (1.000-1.030) 12/11/23 19:04 Urine Protein Negative (NEGATIVE) 12/11/23 19:04 Urine Glucose (UA) 4+ (NEGATIVE) 12/11/23 19:04 Urine Ketones Negative (NEGATIVE) 12/11/23 19:04 Urine Blood Negative (NEGATIVE) 12/11/23 19:04 Urine Nitrite Negative (NEGATIVE) 12/11/23 19:04 Urine Bilirubin Negative (NEGATIVE) 12/11/23 19:04 Urine Urobilinogen Normal (NORMAL) 12/11/23 19:04 Ur Leukocyte Esterase Negative (NEGATIVE) 12/11/23 19:04 XRAY XRAY Interpreted by: Radiologist (Report noted.) Opioid Opioid Risk Tool Age (David box if 16-45): No History of Preadolescent Sexual Abuse: No Total: 0 Total Score Risk Category: Low Risk Copyright: Gopal GRADY predicting aberrant behaviors Discharge Plan Discharge Plan Patient Disposition: 01 HOME, SELF-CARE Condition: Stable Prescriptions: No Action nebivolol 10 mg tablet 10 mg PO QDAY bupropion HCl 150 mg tablet extended release 24 hr 150 mg PO QAM hydroxychloroquine 200 mg tablet 200 mg PO QDAY pravastatin 40 mg tablet 40 mg PO HS gabapentin 800 mg tablet 800 mg PO TID fenofibrate nanocrystallized 145 mg tablet 145 mg PO QDAY buspirone 7.5 mg tablet 7.5 mg PO BID famotidine 20 mg tablet 20 mg PO BID nitroglycerin 0.4 mg tablet, sublingual See Rx Instructions .ROUTE .COMPLEX PRN (Reason: Chest Pain) Rx Instructions: 0.4 mg sublingually every 5 minutes up to 3 doses as needed for chest pain. if no relief go to emergency room clonidine HCl 0.1 mg tablet 0.1 mg PO BID alprazolam 0.5 mg tablet 0.5 mg PO TID PRN (Reason: anxiey) trazodone 100 mg tablet 100 mg PO QPM meclizine 25 mg tablet 25 mg PO TID PRN dapagliflozin propanediol [Farxiga] 10 mg tablet 10 mg PO QDAY aspirin 81 mg Tablet,Chewable 81 mg PO QDAY duloxetine 60 mg capsule,delayed release(DR/EC) 60 mg PO QDAY Vraylar 1.5 mg capsule 1.5 mg PO QDAY ondansetron 8 mg Tablet,Disintegrating 8 mg PO Q8H Qty: 30 0RF tizanidine 4 mg tablet 8 mg PO TID PRN Ozempic 0.25 mg or 0.5 mg (2 mg/3 mL) pen injector 0.5 mg SUBCUT QWEEK Patient Comments: [NO ORIGINAL SIG] Humulin R Regular U-100 Insuln 100 unit/mL solution See Rx Instructions .ROUTE .COMPLEX PRN Patient Comments: [NO ORIGINAL SIG] Rx Instructions: sliding scale Health Concerns: Post Hospitalization: new medications and changes needed to prevent readmission or further decline. Pt educated and given instructions on all concerns. Plan of Treatment: Continue with present treatment and follow up plan. Pt is to keep follow up appointment as instructed and take medications as ordered. Orders to Discharge Patient Discharge Orders: Transfer (Routine); Ordered 12/11/23 Ordered By: GT QUESADA Follow ups/Referrals Follow ups/Referrals: [facility] [Primary Care Provider] - 3 days Instructions Stand Alone Forms: Post Hospital Follow Up Care
--- NOTE | 2023-12-11 13:22 | EKG ---
Test Reason : chest pain Blood Pressure : */* mmHG Vent. Rate : 91 BPM Atrial Rate : 91 BPM P-R Int : 192 ms QRS Dur : 86 ms QT Int : 390 ms P-R-T Axes : 47 77 48 degrees QTc Int : 479 ms Normal sinus rhythm Normal ECG No previous ECGs available Confirmed by Waldemar Walker MD ([id number]) on 12/12/2023 11:21:09 AM Referred By: Confirmed By: Waldemar Walker MD
[2023-12-11 13:56] LABS: BASOPHILS # (AUTO) 0.1 X10^3/uL (0.0-0.1); BASOPHILS % (AUTO) 0.4 % (0.2-1.0); EOSINOPHILS # (AUTO) 0.3 x10^3/uL (0.0-0.2); EOSINOPHILS % (AUTO) 2.4 % (0.9-2.9); HEMATOCRIT 33.8 % (36.0-47.0); HEMOGLOBIN 10.9 g/dL (12.0-16.0); LYMPHOCYTES # (AUTO) 0.9 X10^3/uL (1.3-2.9); LYMPHOCYTES % (AUTO) 6.8 % (21.0-51.0); MEAN CORPUSCULAR HEMOGLOBIN 27.4 pg (27.0-34.0); MEAN CORPUSCULAR HGB CONC 32.3 g/dL (33.0-35.0); MEAN CORPUSCULAR VOLUME 84.8 fL (80.0-100.0); MEAN PLATELET VOLUME 9.8 fL (7.4-11.0); MONOCYTES % (AUTO) 7.3 % (0.0-13.0); NEUTROPHILS # (AUTO) 11.4 x10^3/uL (2.2-4.8); NEUTROPHILS % (AUTO) 83.1 % (42.0-75.0); PLATELET COUNT 266 X10^3/uL (150.0-450.0); RED BLOOD COUNT 3.98 X10^6/uL (3.5-5.4); RED CELL DISTRIBUTION WIDTH 14.6 % (11.6-16.5); WHITE BLOOD COUNT 13.8 X10^3/uL (3.6-10.0)
[2023-12-11 14:13] LABS: ALBUMIN 2.8 g/dL (3.4-5.0); CALCIUM 9.3 mg/dL (8.5-10.1); CARBON DIOXIDE 29.3 mmol/L (21-32); COR CA(FOR HYPOALB) 10.3 mg/dL (8.5-10.1); CREATININE 1.85 mg/dL (0.55-1.02); TOTAL PROTEIN 7.5 g/dL (6.4-8.2)
[2023-12-11] MEDS ORDERED: NITROSTAT SL PRN (17:02)
[2023-12-11] MEDS: ZOFRAN INJ 4 MG VIAL IVP ONE (17:11)
[2023-12-11] MEDS: MORPHINE SULFATE INJ 4 MG IVP ONE ×2 (17:12→21:41)
--- NOTE | 2023-12-11 19:21 | RAD ---
EXAM: CHEST, 1 VIEW HISTORY: chest pain; COMPARISON: None available. FINDINGS: The trachea is midline. The cardiac silhouette is unremarkable . The lungs are clear without focal infiltrate or effusion. The bony thorax is unremarkable. IMPRESSION: No acute cardiopulmonary disease. THIS IS AN ELECTRONICALLY VERIFIED FINAL REPORT 12/11/2023 7:17 PM - Electronically signed by Yohan Quiñones MD
[2023-12-11 19:22] LABS: BILIRUBIN,URINE NEGATIVE (NEGATIVE); BLOOD/HEMOGLOBIN,URINE NEGATIVE (NEGATIVE); GLUCOSE, URINE 4+ (NEGATIVE); KETONES,URINE NEGATIVE (NEGATIVE); LEUKOCYTE ESTERASE ,URINE NEGATIVE (NEGATIVE); NITRITES,URINE NEGATIVE (NEGATIVE); PROTEIN,URINE NEGATIVE (NEGATIVE); UROBILINOGEN,URINE NORMAL (NORMAL)
[2023-12-11 19:26] LABS: APPEARANCE,URINE CLEAR (CLEAR); COLOR,URINE PALE YELLOW (YELLOW)
--- NOTE | 2023-12-11 21:02 | RAD ---
EXAM:SACRUM & COCCYXHISTORY:PT STATES SHE FELL ON TAILBONE ON 12/11/23; UnavailableCOMPARISON:None.FINDINGS:No acute cortical disruption can be observed. The visualized portions of the SI joint on the right and left are unremarkable. The visualized portions of the pelvis are normal as well.IMPRESSION:Negative examTHIS IS AN ELECTRONICALLY VERIFIED FINAL REPORT12/11/2023 8:59 PM - Electronically signed by oYhan Quiñones MD
[2023-12-11] MEDS ORDERED: NS 1,000 ML IV 1,000 ML ONE (21:29)
[2023-12-11] MEDS: MORPHINE SULFATE INJ 4 MG ONE (21:36)
[2023-12-11] MEDS: NS 1,000 ML IV 1,000 ML IV ONE (21:40)
[2023-12-11] MEDS: NS 1,000 ML IV 1,000 ML IV SCH (23:48)
[2023-12-12] MEDS: ULTRAM PO PRN (06:06)
[2023-12-12 06:53] LABS: BASOPHILS % (AUTO) 0.3 % (0.2-1.0); EOSINOPHILS # (AUTO) 0.4 x10^3/uL (0.0-0.2); EOSINOPHILS % (AUTO) 5.4 % (0.9-2.9); HEMATOCRIT 35.9 % (36.0-47.0); HEMOGLOBIN 11.5 g/dL (12.0-16.0); LYMPHOCYTES # (AUTO) 1.1 X10^3/uL (1.3-2.9); LYMPHOCYTES % (AUTO) 13.6 % (21.0-51.0); MEAN CORPUSCULAR HEMOGLOBIN 27.4 pg (27.0-34.0); MEAN CORPUSCULAR HGB CONC 32.1 g/dL (33.0-35.0); MEAN CORPUSCULAR VOLUME 85.2 fL (80.0-100.0); MEAN PLATELET VOLUME 9.9 fL (7.4-11.0); MONOCYTES # (AUTO) 0.8 x10^3/uL (0.3-0.8); MONOCYTES % (AUTO) 9.9 % (0.0-13.0); NEUTROPHILS # (AUTO) 5.7 x10^3/uL (2.2-4.8); NEUTROPHILS % (AUTO) 70.8 % (42.0-75.0); PLATELET COUNT 247 X10^3/uL (150.0-450.0); RED BLOOD COUNT 4.22 X10^6/uL (3.5-5.4); RED CELL DISTRIBUTION WIDTH 14.4 % (11.6-16.5)
[2023-12-12 06:56] LABS: ALBUMIN 2.3 g/dL (3.4-5.0); CALCIUM 8.9 mg/dL (8.5-10.1); CARBON DIOXIDE 28.1 mmol/L (21-32); COR CA(FOR HYPOALB) 10.3 mg/dL (8.5-10.1); CREATININE 1.57 mg/dL (0.55-1.02); MAGNESIUM 2.1 mg/dL (2.0-2.9); POTASSIUM 4.3 mmol/L (3.5-5.1); TOTAL PROTEIN 6.3 g/dL (6.4-8.2)
[2023-12-12] MEDS ORDERED: ALPRAZOLAM ODT PO PRN (09:17)
[2023-12-12] MEDS: CYMBALTA PO SCH (09:38)
[2023-12-12] MEDS: TRICOR TAB 145 MG PO SCH (09:39)
[2023-12-12] MEDS: ASPIRIN 81 MG CHEWTAB PO SCH (09:39)
[2023-12-12] MEDS: PEPCID TAB 20 MG PO SCH (09:39)
[2023-12-12] MEDS: PLAQUENIL PO SCH (09:39)
[2023-12-12] MEDS: PATIENT'S HOME MEDICATION (Cariprazine [Vraylar] 1.5 mg capsule) PO SCH (09:42)
[2023-12-12] MEDS: BUSPIRONE 7.5 MG PO SCH (09:43)
[2023-12-12] MEDS: NYSTATIN POWDER TOP SCH (11:41)
[2023-12-12] MEDS: ZOFRAN INJ 4 MG VIAL IVP PRN (11:41)
[2023-12-12] MEDS: NovoLIN R (or HumuLIN R) SUBCUT PRN (11:44)
[2023-12-12] MEDS ORDERED: PHENERGAN INJ 25 MG IM PRN (13:23)
--- NOTE | 2023-12-12 13:55 | EKG ---
Test Reason : chest pain Blood Pressure : */* mmHG Vent. Rate : 72 BPM Atrial Rate : 72 BPM P-R Int : 170 ms QRS Dur : 84 ms QT Int : 402 ms P-R-T Axes : -24 56 36 degrees QTc Int : 440 ms Normal sinus rhythm Normal ECG When compared with ECG of 11-DEC-2023 13:18, No significant change was found Confirmed by Waldemar Walker MD ([id number]) on 12/13/2023 7:30:05 AM Referred By: Confirmed By: Waldemar Walker MD
[2023-12-12] MEDS: NEURONTIN CAP 400 MG PO SCH (14:15)
--- NOTE | 2023-12-12 15:13 | DR.H&P ---
H&P History & Physical for Day of: H&P Date: 12/12/23 Chief Complaint Chief Complaint: chest pain, SOB History of Present Illness History of Present Illness: Ms De Jesus is a 73y/o female with a PMH of CAD, CVA, DM, HTN, HLD and GERD presented with chest pain. She states she took nitro and that relieved the pain. She also reports intermittent SOB. Er work up showed elevated d-dimer and BUN/Cr. Trop negative. Patient also had hyponatremia. She was started on hydration and admitted for further management. CTA chest was ordered to r/o PE but due to patient's poor renal function, it was not done. She reports feeling better today. Denies chest pain or SOB. She does report having indigestion and heartburn. Her renal function is better today. Patient was adamant about being discharged today as her son is available to pick her up today. Patient's renal function is not adequate for CTA-chest today. Discussed to repeat d-dimer and will decide. Labs/imaging reviewed: -BUN/Cr /1.57 Na 137 D-dimer 0.79 Plan: repeat D-dimer, monitor on tele. Continue hydration. Replace electrolytes as per protocol. Resume home medications. Add protonix. Monitor AM labs/imaging. CTA-chest in the AM. 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 Family History Family Medical History: Diabetes Mellitus, [place], Coronary Artery Disease and Hypertension Social History Does patient currently use any type of tobacco product: No Have you used tobacco products in the last 12 months: No Type of Tobacco Use: None Does any household member use tobacco: No Alcohol Use: None Drug Use: None Medications Home Medications: Home Medications Medication Instructions Recorded Confirmed Type bupropion HCl 150 mg 24 hr tablet, 150 mg PO QAM 09/08/22 12/11/23 History extended release buspirone 7.5 mg tablet 7.5 mg PO BID 09/08/22 12/11/23 History famotidine 20 mg tablet 20 mg PO BID 09/08/22 12/11/23 History fenofibrate nanocrystallized 145 145 mg PO QDAY 09/08/22 12/11/23 History mg tablet gabapentin 800 mg tablet 800 mg PO TID 09/08/22 12/11/23 History hydroxychloroquine 200 mg tablet 200 mg PO QDAY 09/08/22 12/11/23 History nebivolol 10 mg tablet 10 mg PO QDAY 09/08/22 12/11/23 History nitroglycerin 0.4 mg sublingual See Rx Instructions .Route 09/08/22 12/11/23 History tablet .COMPLEX PRN Chest Pain pravastatin 40 mg tablet 40 mg PO HS 09/08/22 12/11/23 History alprazolam 0.5 mg tablet 0.5 mg PO TID PRN anxiey 07/27/23 12/11/23 History aspirin 81 mg chewable tablet 81 mg PO QDAY 07/27/23 12/11/23 History cariprazine 1.5 mg capsule 1.5 mg PO QDAY 07/27/23 12/11/23 History (Vraylar) clonidine HCl 0.1 mg tablet 0.1 mg PO BID 07/27/23 12/11/23 History dapagliflozin propanediol 10 mg 10 mg PO QDAY 07/27/23 12/11/23 History tablet (Farxiga) duloxetine 60 mg capsule,delayed 60 mg PO QDAY 07/27/23 12/11/23 History release meclizine 25 mg tablet 25 mg PO TID PRN 07/27/23 12/11/23 History trazodone 100 mg tablet 100 mg PO QPM 07/27/23 12/11/23 History semaglutide 0.25 mg or 0.5 mg (2 0.5 mg subcut QWEEK 11/24/23 12/11/23 History mg/3 mL) subcutaneous pen injector (Ozempic) tizanidine 4 mg tablet 8 mg PO TID PRN 11/24/23 12/11/23 History insulin regular human 100 unit/mL See Rx Instructions .Route 12/11/23 12/11/23 History injection solution (Humulin R .COMPLEX PRN Regular U-100 Insulin) Allergies Allergies Allergy/AdvReac Type Severity Reaction Status Date / Time No Known Drug Allergies Allergy Verified 11/24/23 04:59 Labs 12/12/23 06:04 12/12/23 06:04 Labs: Laboratory WBC 8.0 X10^3/uL (3.6-10.0) 12/12/23 06:04 RBC 4.22 X10^6/uL (3.5-5.4) 12/12/23 06:04 Hgb 11.5 g/dL (12.0-16.0) L 12/12/23 06:04 Hct 35.9 % (36.0-47.0) L 12/12/23 06:04 MCV 85.2 fL (80.0-100.0) 12/12/23 06:04 MCH 27.4 pg (27.0-34.0) 12/12/23 06:04 MCHC 32.1 g/dL (33.0-35.0) L 12/12/23 06:04 RDW 14.4 % (11.6-16.5) 12/12/23 06:04 Plt Count 247 X10^3/uL (150.0-450.0) 12/12/23 06:04 MPV 9.9 fL (7.4-11.0) 12/12/23 06:04 Neut % (Auto) 70.8 % (42.0-75.0) 12/12/23 06:04 Lymph % (Auto) 13.6 % (21.0-51.0) L 12/12/23 06:04 [place] % (Auto) 9.9 % (0.0-13.0) 12/12/23 06:04 Eos % (Auto) 5.4 % (0.9-2.9) H 12/12/23 06:04 Baso % (Auto) 0.3 % (0.2-1.0) 12/12/23 06:04 Neut # (Auto) 5.7 x10^3/uL (2.2-4.8) H 12/12/23 06:04 Lymph # (Auto) 1.1 X10^3/uL (1.3-2.9) L 12/12/23 06:04 [place] # (Auto) 0.8 x10^3/uL (0.3-0.8) 12/12/23 06:04 Eos # (Auto) 0.4 x10^3/uL (0.0-0.2) H 12/12/23 06:04 Baso # (Auto) 0.0 X10^3/uL (0.0-0.1) 12/12/23 06:04 Absolute Nucleated RBC 0.1 /100WBC 12/12/23 06:04 D-Dimer 1.04 ug/ml (0.0-0.57) H 12/12/23 10:22 Sodium 137 mmol/L (136-145) 12/12/23 06:04 Corrected Sodium 140 mmol/L (136-145) 12/12/23 06:04 Potassium 4.3 mmol/L (3.5-5.1) 12/12/23 06:04 Chloride 103 mmol/L (98-107) 12/12/23 06:04 Carbon Dioxide 28.1 mmol/L (21-32) 12/12/23 06:04 BUN 23 mg/dL (7-18) H 12/12/23 06:04 Creatinine 1.57 mg/dL (0.55-1.02) H 12/12/23 06:04 Est GFR (MDRD) Af Amer 42 (>60) L 12/12/23 06:04 Est GFR (MDRD) Non-Af 34 (>60) L 12/12/23 06:04 Glucose 206 mg/dL (65-99) H 12/12/23 06:04 POC Glucose (mg/dL) 172 mg/dL (65-99) H 12/12/23 06:30 Calcium 8.9 mg/dL (8.5-10.1) 12/12/23 06:04 Corrected Calcium 10.3 mg/dL (8.5-10.1) H 12/12/23 06:04 Magnesium 2.1 mg/dL (2.0-2.9) 12/12/23 06:04 Total Bilirubin 0.90 mg/dL (0.2-1.0) 12/12/23 06:04 AST 275 Units/L (15-37) H 12/12/23 06:04 ALT 135 Units/L (12-78) H 12/12/23 06:04 Alkaline Phosphatase 244 Units/L (46-116) H 12/12/23 06:04 Creatine Kinase 71 Units/L (26-192) 12/11/23 20:18 Troponin I High Sens 7.5 ng/L (4.0-60.0) 12/11/23 20:18 B-Natriuretic Peptide 24.1 pg/mL (0-79) 12/11/23 13:40 Total Protein 6.3 g/dL (6.4-8.2) L 12/12/23 06:04 Albumin 2.3 g/dL (3.4-5.0) L 12/12/23 06:04 Globulin 4.0 g/dL (2.5-4.5) 12/12/23 06:04 Albumin/Globulin Ratio 0.6 Ratio (1.1-2.1) L 12/12/23 06:04 Specimen Type Clean catch urine 12/11/23 19:04 Urine Color Pale yellow (YELLOW) 12/11/23 19:04 Urine Appearance Clear (CLEAR) 12/11/23 19:04 Urine pH 6.0 (5.0 - 8.0) 12/11/23 19:04 Ur Specific [place] 1.020 (1.000-1.030) 12/11/23 19:04 Urine Protein Negative (NEGATIVE) 12/11/23 19:04 Urine Glucose (UA) 4+ (NEGATIVE) 12/11/23 19:04 Urine Ketones Negative (NEGATIVE) 12/11/23 19:04 Urine Blood Negative (NEGATIVE) 12/11/23 19:04 Urine Nitrite Negative (NEGATIVE) 12/11/23 19:04 Urine Bilirubin Negative (NEGATIVE) 12/11/23 19:04 Urine Urobilinogen Normal (NORMAL) 12/11/23 19:04 Ur Leukocyte Esterase Negative (NEGATIVE) 12/11/23 19:04 Review of Systems Constitutional: No Symptoms Reported Eyes: No Symptoms Reported Respiratory: Shortness of Breath Cardiovascular: Chest Pain Gastrointestinal: Nausea Genitourinary: No Symptoms Reported Musculoskeletal: No Symptoms Reported Skin: No Symptoms Reported Neurological: No Symptoms Reported Physical Exam Vital Signs: Vital Signs Temperature 98 F Pulse Rate [Radial] 75 Respiratory Rate 18 Respiratory Rate 18 Blood Pressure [Left Arm] 120/55 O2 Sat by Pulse Oximetry 97 Oriented: Normal Eyes: Normal Throat: Normal, Tonsillar Hypertrophy, Red, Exudate, Dry and Other Respiratory: Diminished Throughout Cardiovascular: Normal Auscultation: Bowel Sounds: Normal Palpation: Normal Tenderness: Normal Skin: Normal Musculoskeletal: Normal Psychiatric: Normal Affect: Normal Speech Pattern: Clear and Appropriate Assessment/Plan (1) Chest pain, rule out acute myocardial infarction: Status: Acute (2) Dehydration: Status: Acute (3) KANA (acute kidney injury): Status: Acute (4) Hyponatremia: Status: Acute (5) Hypertension: Qualifiers: Hypertension type: primary hypertension Qualified Code(s): I10 - Essential (primary) hypertension Status: Acute Review H&P Reviewed: Yes Patient was examined?: Yes
[2023-12-12] MEDS: ASPIRIN 81 MG CHEWTAB PO ONE (15:48)
[2023-12-12] MEDS: PROTONIX TAB 40 MG PO SCH (16:15)
[2023-12-12] MEDS: DESYREL PO SCH (21:45)
[2023-12-12] MEDS: SNACK - Diabetic Appropriate PO SCH (22:52)
[2023-12-13 05:44] LABS: BASOPHILS % (AUTO) 0.4 % (0.2-1.0); EOSINOPHILS # (AUTO) 0.4 x10^3/uL (0.0-0.2); EOSINOPHILS % (AUTO) 5.9 % (0.9-2.9); HEMATOCRIT 33.7 % (36.0-47.0); HEMOGLOBIN 10.8 g/dL (12.0-16.0); LYMPHOCYTES # (AUTO) 1.4 X10^3/uL (1.3-2.9); LYMPHOCYTES % (AUTO) 21.5 % (21.0-51.0); MEAN CORPUSCULAR HEMOGLOBIN 27.4 pg (27.0-34.0); MEAN CORPUSCULAR HGB CONC 32.2 g/dL (33.0-35.0); MEAN CORPUSCULAR VOLUME 85.3 fL (80.0-100.0); MEAN PLATELET VOLUME 8.9 fL (7.4-11.0); MONOCYTES # (AUTO) 0.7 x10^3/uL (0.3-0.8); MONOCYTES % (AUTO) 10.9 % (0.0-13.0); NEUTROPHILS % (AUTO) 61.3 % (42.0-75.0); PLATELET COUNT 249 X10^3/uL (150.0-450.0); RED BLOOD COUNT 3.95 X10^6/uL (3.5-5.4); RED CELL DISTRIBUTION WIDTH 14.5 % (11.6-16.5); WHITE BLOOD COUNT 6.5 X10^3/uL (3.6-10.0)
[2023-12-13 05:58] LABS: ALANINE AMINOTRANSFERASE 75 Units/L (12-78); ALBUMIN 2.2 g/dL (3.4-5.0); ALKALINE PHOSPHATASE 186 Units/L (46-116); ASPARTATE AMINO TRANSFERASE 67 Units/L (15-37); BLOOD UREA NITROGEN 14 mg/dL (7-18); CALCIUM 8.4 mg/dL (8.5-10.1); CARBON DIOXIDE 23.1 mmol/L (21-32); CHLORIDE 105 mmol/L (98-107); COR CA(FOR HYPOALB) 9.8 mg/dL (8.5-10.1); COR NA(FOR HYPERGLY) 140 mmol/L (136-145); CREATININE 1.13 mg/dL (0.55-1.02); GLUCOSE 222 mg/dL (65-99); MAGNESIUM 1.7 mg/dL (2.0-2.9); POTASSIUM 4.1 mmol/L (3.5-5.1); SODIUM 137 mmol/L (136-145); eGFR NON BLACK RACES 50 (>60)
[2023-12-13] MEDS ORDERED: CONSULT PHARMACY - POTASSIUM & MAGNESIUM XX SCH (07:00)
[2023-12-13] MEDS: LOVENOX INJ 40 MG SYR SC SCH (10:22)
[2023-12-13] MEDS: PERCOCET TAB 5/325 MG PO PRN (10:22)
--- NOTE | 2023-12-13 11:52 | CT ---
EXAMINATION:CTA, CHESTHISTORY:CHEST PAIN, HTN, DM;COMPARISON:CT thorax 10/21/2022TECHNIQUE:Contiguous axial CT images of the thorax following intravenous contrast. Images are reviewed in the axial imaging plane with post processing thick slab MIP/3D volume images at a workstation.The above CT scan was done with automated exposure control and the mA and kV was adjusted to obtain quality images according to patient size.FINDINGS:The lungs are expanded. Subtle interstitial alveolar opacities scattered in both lungs. Small bilateral pleural effusions in the dependent posterior pleural spaces. The central airways are patent.Mild multichamber cardiac enlargement. Coronary artery calcifications. Normal enhancement of the central pulmonary arteries. No evidence of thoracic aortic aneurysm or dissection. Scattered arterial vascular calcifications of the aorta and branch vessels. No pericardial effusion.[id number] spondylosis.IMPRESSION:Subtle interstitial alveolar opacities scattered in both lungs with small bilateral pleural effusions.No evidence of acute pulmonary embolism.Mild cardiomegaly, coronary artery calcifications.THIS IS AN ELECTRONICALLY VERIFIED FINAL REPORT12/13/2023 11:39 AM - Electronically signed by Madie Weber MD
[2023-12-13] MEDS: LASIX IVP ONE (12:30)
[2023-12-13] MEDS: WELLBUTRIN XL 150 MG (DAILY) PO SCH (12:31)
[2023-12-13] MEDS: MAG-OX TAB PO SCH (12:32)
[2023-12-13] MEDS: ZITHROMAX INJ 500 MG VIAL 500 MG in NS 250 ML IV 250 ML IV SCH (12:33)
[2023-12-13] MEDS: XOPENEX 1.25 MG/3 ML NEBULE NEB SCH (16:26)
[2023-12-13] MEDS: PULMICORT NEB TX 0.5 MG NEB SCH (21:14)
[2023-12-14 06:45] LABS: BASOPHILS % (AUTO) 0.7 % (0.2-1.0); EOSINOPHILS # (AUTO) 0.5 x10^3/uL (0.0-0.2); EOSINOPHILS % (AUTO) 8.8 % (0.9-2.9); HEMATOCRIT 33.9 % (36.0-47.0); HEMOGLOBIN 10.9 g/dL (12.0-16.0); LYMPHOCYTES # (AUTO) 1.5 X10^3/uL (1.3-2.9); LYMPHOCYTES % (AUTO) 23.8 % (21.0-51.0); MEAN CORPUSCULAR HEMOGLOBIN 27.4 pg (27.0-34.0); MEAN CORPUSCULAR HGB CONC 32.2 g/dL (33.0-35.0); MEAN CORPUSCULAR VOLUME 85.2 fL (80.0-100.0); MEAN PLATELET VOLUME 10.1 fL (7.4-11.0); MONOCYTES # (AUTO) 0.8 x10^3/uL (0.3-0.8); MONOCYTES % (AUTO) 12.9 % (0.0-13.0); NEUTROPHILS # (AUTO) 3.3 x10^3/uL (2.2-4.8); NEUTROPHILS % (AUTO) 53.8 % (42.0-75.0); PLATELET COUNT 273 X10^3/uL (150.0-450.0); RED BLOOD COUNT 3.97 X10^6/uL (3.5-5.4); RED CELL DISTRIBUTION WIDTH 14.4 % (11.6-16.5); WHITE BLOOD COUNT 6.2 X10^3/uL (3.6-10.0)
[2023-12-14] MEDS ORDERED: MILK OF MAGNESIA PO PRN (06:48)
[2023-12-14 06:50] LABS: ALBUMIN 2.3 g/dL (3.4-5.0); CALCIUM 8.4 mg/dL (8.5-10.1); CARBON DIOXIDE 26.5 mmol/L (21-32); COR CA(FOR HYPOALB) 9.8 mg/dL (8.5-10.1); CREATININE 1.15 mg/dL (0.55-1.02); MAGNESIUM 1.7 mg/dL (2.0-2.9); POTASSIUM 3.9 mmol/L (3.5-5.1); TOTAL PROTEIN 6.2 g/dL (6.4-8.2)
[2023-12-14] MEDS ORDERED: CONSULT PHARMACY - POTASSIUM & MAGNESIUM XX SCH (07:00)
--- NOTE | 2023-12-14 07:27 | RAD ---
EXAMINATION:CHEST, 1 VIEWHISTORY:PNEUMONIA; CAD, CVA, DM, HTN, NV, GERD SX: APPY, BARBARA, HYST .COMPARISON STUDY:None.TECHNIQUE:Single portable AP view chestFINDINGS:Lungs are expanded. Streaky opacity left pulmonary base. Mild cardiac silhouette enlargement. Normal pulmonary vascular pattern. Bones are intact.IMPRESSION:Streaky opacity left pulmonary base with mild cardiac silhouette enlargement.THIS IS AN ELECTRONICALLY VERIFIED FINAL REPORT12/14/2023 7:24 AM - Electronically signed by Madie Weber MD
[2023-12-14] MEDS: MAG-OX TAB PO SCH (09:15)
[2023-12-14 10:21] VITALS: BP 148/81; PULSE 84; RESP 18; TEMP 98.3; O2SAT 98
[2023-12-14] MEDS: DULCOLAX TAB EC 5 MG PO ONE (10:30)
== END 2023-12-14 12:50 | disposition home health service (06) ==
LOC: ER 12:45 → MED/SURG 12:45
PROVIDERS: ADMIT Internal Medicine; ATTEND Internal Medicine
DX: J90 Pleural effusion, not elsewhere classified; E78.5 Hyperlipidemia, unspecified; I10 Essential (primary) hypertension; N17.8 Other acute kidney failure; R07.89 Other chest pain; M54.89 Other dorsalgia; R26.89 Other abnormalities of gait and mobility; K21.9 Gastro-esophageal reflux disease without esophagitis; E86.0 Dehydration; Z86.73 Personal history of transient ischemic attack (TIA), and cerebral infarction without residual deficits; E11.65 Type 2 diabetes mellitus with hyperglycemia; I25.10 Atherosclerotic heart disease of native coronary artery without angina pectoris; Z91.81 History of falling; R06.02 Shortness of breath; F41.8 Other specified anxiety disorders; R53.1 Weakness; R79.1 Abnormal coagulation profile; E87.1 Hypo-osmolality and hyponatremia

== ENCOUNTER 2023-12-20 12:53 | Observation (INO) ==
--- NOTE | 2023-12-20 14:26 | EKG ---
Test Reason : sob, palpitations Blood Pressure : */* mmHG Vent. Rate : 104 BPM Atrial Rate : 104 BPM P-R Int : 164 ms QRS Dur : 80 ms QT Int : 352 ms P-R-T Axes : 11 91 50 degrees QTc Int : 462 ms Sinus tachycardia Rightward axis Borderline ECG When compared with ECG of 12-DEC-2023 13:40, small axis change Confirmed by Waldemar Walker MD ([id number]) on 12/20/2023 2:35:32 PM Referred By: Confirmed By: Waldemar Walker MD
--- NOTE | 2023-12-20 14:53 | RAD ---
EXAM:CHEST, 1 VIEWHISTORY:palpitations;COMPARISON:Prio r study or studies were utilized for comparison during interpretation with the most relevant dated 12/14/2023TECHNIQUE:CHEST, 1 VIEWFINDINGS:Chest:Lines and tubes: NoneMediastinum: Cardiac and mediastinal shadow is within normal limits for size and contour.Pulmonary vessels: No pulmonary vascular congestion.Lung beard: No suspicious airspace opacity.Pleura: No effusion. No pneumothorax.Bones and soft tissues: No acute osseous or soft tissue abnormality.IMPRESSION:1. No acute cardiopulmonary abnormalityTHIS IS AN ELECTRONICALLY VERIFIED FINAL REPORT12/20/2023 2:50 PM - Electronically signed by Jose David Smith MD
[2023-12-20 16:07] LABS: BASOPHILS # (AUTO) 0.1 X10^3/uL (0.0-0.1); BASOPHILS % (AUTO) 0.5 % (0.2-1.0); EOSINOPHILS # (AUTO) 0.3 x10^3/uL (0.0-0.2); EOSINOPHILS % (AUTO) 2.9 % (0.9-2.9); HEMATOCRIT 37.6 % (36.0-47.0); LYMPHOCYTES # (AUTO) 1.5 X10^3/uL (1.3-2.9); MEAN CORPUSCULAR HEMOGLOBIN 26.9 pg (27.0-34.0); MEAN CORPUSCULAR HGB CONC 31.8 g/dL (33.0-35.0); MEAN CORPUSCULAR VOLUME 84.4 fL (80.0-100.0); MEAN PLATELET VOLUME 9.2 fL (7.4-11.0); MONOCYTES # (AUTO) 0.5 x10^3/uL (0.3-0.8); MONOCYTES % (AUTO) 4.5 % (0.0-13.0); NEUTROPHILS # (AUTO) 9.2 x10^3/uL (2.2-4.8); NEUTROPHILS % (AUTO) 79.1 % (42.0-75.0); PLATELET COUNT 343 X10^3/uL (150.0-450.0); RED BLOOD COUNT 4.45 X10^6/uL (3.5-5.4); RED CELL DISTRIBUTION WIDTH 14.8 % (11.6-16.5); WHITE BLOOD COUNT 11.6 X10^3/uL (3.6-10.0)
[2023-12-20 16:08] VITALS: BMI 31.2
[2023-12-20 16:24] LABS: ALBUMIN 3.3 g/dL (3.4-5.0); CALCIUM 9.7 mg/dL (8.5-10.1); CARBON DIOXIDE 32.1 mmol/L (21-32); COR CA(FOR HYPOALB) 10.3 mg/dL (8.5-10.1); CREATININE 1.42 mg/dL (0.55-1.02); POTASSIUM 3.9 mmol/L (3.5-5.1); TOTAL PROTEIN 7.6 g/dL (6.4-8.2)
[2023-12-20] MEDS ORDERED: PATIENT'S HOME MEDICATION (Gabapentin 800 mg tablet) PO PRN (17:41)
--- NOTE | 2023-12-20 17:52 | DR.H&P ---
H&P History & Physical for Day of: H&P Date: 12/20/23 Chief Complaint Chief Complaint: heart racing History of Present Illness History of Present Illness: PT IS [id number], DIRECT ADMIT FROM DR MORENO OFFICE WITH NEW ONSET TACHYCARDIA WITH CO WEAKNESS AND SOB. PT HAD PMH OF HTN, DM, OA, HYPERLIPIDEMIA AND SIDRA. PT REPORTS SHE TAKES BYSTOLIC FOR BP CONTROL. PT'S HR IN OFFICE WAS 140-150 WITH OUT IMPROVEMENT AFTER MONITORING. PT DENIES ANY FEVER OR FLU LIKE SYMPTOMS. Past Medical History Past Medical History: Anxiety, Arthritis, Coronary Artery Disease, CVA, Depression, Diabetes, Dyslipidemia, GERD, Hypertension and WI Past Surgical History Surgical History: Appendectomy, CABINET MOUNTER Surgery and Hysterectomy Family History Family Medical History: Diabetes Mellitus, [place], Coronary Artery Disease and Hypertension Social History Does patient currently use any type of tobacco product: No Type of Tobacco Use: None Does any household member use tobacco: No Alcohol Use: None Drug Use: None Medications Home Medications: Home Medications Medication Instructions Recorded Confirmed Type bupropion HCl 150 mg 24 hr tablet, 150 mg PO QAM 09/08/22 12/20/23 History extended release buspirone 7.5 mg tablet 7.5 mg PO BID 09/08/22 12/20/23 History famotidine 20 mg tablet 20 mg PO BID 09/08/22 12/20/23 History fenofibrate nanocrystallized 145 145 mg PO QDAY 09/08/22 12/20/23 History mg tablet gabapentin 800 mg tablet 800 mg PO TID 09/08/22 12/20/23 History hydroxychloroquine 200 mg tablet 200 mg PO QDAY 09/08/22 12/20/23 History nebivolol 10 mg tablet 10 mg PO QDAY 09/08/22 12/20/23 History nitroglycerin 0.4 mg sublingual See Rx Instructions .Route 09/08/22 12/20/23 History tablet .COMPLEX PRN Chest Pain pravastatin 40 mg tablet 40 mg PO HS 09/08/22 12/20/23 History alprazolam 0.5 mg tablet 0.5 mg PO TID PRN Anxiety 07/27/23 12/20/23 History aspirin 81 mg chewable tablet 81 mg PO QDAY 07/27/23 12/20/23 History cariprazine 1.5 mg capsule 1.5 mg PO QDAY 07/27/23 12/20/23 History (Vraylar) clonidine HCl 0.1 mg tablet 0.1 mg PO BID 07/27/23 12/20/23 History dapagliflozin propanediol 10 mg 10 mg PO QDAY 07/27/23 12/20/23 History tablet (Farxiga) duloxetine 60 mg capsule,delayed 60 mg PO QDAY 07/27/23 12/20/23 History release meclizine 25 mg tablet 25 mg PO TID PRN 07/27/23 12/20/23 History trazodone 100 mg tablet 100 mg PO QPM 07/27/23 12/20/23 History semaglutide 0.25 mg or 0.5 mg (2 0.5 mg subcut QWEEK 11/24/23 12/20/23 History mg/3 mL) subcutaneous pen injector (Ozempic) tizanidine 4 mg tablet 8 mg PO TID PRN 11/24/23 12/20/23 History insulin regular human 100 unit/mL See Rx Instructions .Route 12/11/23 12/20/23 History injection solution (Humulin R .COMPLEX PRN Regular U-100 Insulin) Allergies Allergies Allergy/AdvReac Type Severity Reaction Status Date / Time No Known Drug Allergies Allergy Verified 11/24/23 04:59 Labs 12/20/23 15:45 12/20/23 15:45 Labs: Laboratory WBC 11.6 X10^3/uL (3.6-10.0) H 12/20/23 15:45 RBC 4.45 X10^6/uL (3.5-5.4) 12/20/23 15:45 Hgb 12.0 g/dL (12.0-16.0) 12/20/23 15:45 Hct 37.6 % (36.0-47.0) 12/20/23 15:45 MCV 84.4 fL (80.0-100.0) 12/20/23 15:45 MCH 26.9 pg (27.0-34.0) L 12/20/23 15:45 MCHC 31.8 g/dL (33.0-35.0) L 12/20/23 15:45 RDW 14.8 % (11.6-16.5) 12/20/23 15:45 Plt Count 343 X10^3/uL (150.0-450.0) 12/20/23 15:45 MPV 9.2 fL (7.4-11.0) 12/20/23 15:45 Neut % (Auto) 79.1 % (42.0-75.0) H 12/20/23 15:45 Lymph % (Auto) 13.0 % (21.0-51.0) L 12/20/23 15:45 [place] % (Auto) 4.5 % (0.0-13.0) 12/20/23 15:45 Eos % (Auto) 2.9 % (0.9-2.9) 12/20/23 15:45 Baso % (Auto) 0.5 % (0.2-1.0) 12/20/23 15:45 Neut # (Auto) 9.2 x10^3/uL (2.2-4.8) H 12/20/23 15:45 Lymph # (Auto) 1.5 X10^3/uL (1.3-2.9) 12/20/23 15:45 [place] # (Auto) 0.5 x10^3/uL (0.3-0.8) 12/20/23 15:45 Eos # (Auto) 0.3 x10^3/uL (0.0-0.2) H 12/20/23 15:45 Baso # (Auto) 0.1 X10^3/uL (0.0-0.1) 12/20/23 15:45 Absolute Nucleated RBC 0.0 /100WBC 12/20/23 15:45 Sodium 133 mmol/L (136-145) L 12/20/23 15:45 Corrected Sodium 138 mmol/L (136-145) 12/20/23 15:45 Potassium 3.9 mmol/L (3.5-5.1) 12/20/23 15:45 Chloride 97 mmol/L (98-107) L 12/20/23 15:45 Carbon Dioxide 32.1 mmol/L (21-32) H 12/20/23 15:45 BUN 27 mg/dL (7-18) H 12/20/23 15:45 Creatinine 1.42 mg/dL (0.55-1.02) H 12/20/23 15:45 Est GFR (MDRD) Af Amer 47 (>60) L 12/20/23 15:45 Est GFR (MDRD) Non-Af 39 (>60) L 12/20/23 15:45 Glucose 290 mg/dL (65-99) H 12/20/23 15:45 Calcium 9.7 mg/dL (8.5-10.1) 12/20/23 15:45 Corrected Calcium 10.3 mg/dL (8.5-10.1) H 12/20/23 15:45 Magnesium 1.7 mg/dL (2.0-2.9) L 12/20/23 15:45 Total Bilirubin 0.50 mg/dL (0.2-1.0) 12/20/23 15:45 AST 15 Units/L (15-37) 12/20/23 15:45 ALT 22 Units/L (12-78) 12/20/23 15:45 Alkaline Phosphatase 121 Units/L (46-116) H 12/20/23 15:45 Creatine Kinase 23 Units/L (26-192) L 12/20/23 15:45 Troponin I High Sens 14.7 ng/L (4.0-60.0) 12/20/23 15:45 B-Natriuretic Peptide 23.3 pg/mL (0-79) 12/20/23 15:45 Total Protein 7.6 g/dL (6.4-8.2) 12/20/23 15:45 Albumin 3.3 g/dL (3.4-5.0) L 12/20/23 15:45 Globulin 4.3 g/dL (2.5-4.5) 12/20/23 15:45 Albumin/Globulin Ratio 0.8 Ratio (1.1-2.1) L 12/20/23 15:45 Review of Systems Constitutional: Weakness Eyes: No Symptoms Reported ENT: No Symptoms Reported Respiratory: SOB with Excertion Cardiovascular: Palpitations Gastrointestinal: Nausea Genitourinary: Frequency Musculoskeletal: Back Pain Skin: No Symptoms Reported Neurological: Weakness Physical Exam Vital Signs: Vital Signs Temperature 99.1 F Pulse Rate 84 Pulse Rate 84 Pulse Rate 86 Pulse Rate 86 Pulse Rate 87 Pulse Rate 87 Pulse Rate 106 Pulse Rate 105 Pulse Rate 104 Pulse Rate 104 Pulse Rate 105 Respiratory Rate 21 Respiratory Rate 21 Respiratory Rate 22 Respiratory Rate 20 Respiratory Rate 15 Respiratory Rate 16 Respiratory Rate 17 Respiratory Rate 18 Respiratory Rate 19 Respiratory Rate 17 Respiratory Rate 23 Blood Pressure 153/71 Blood Pressure 158/66 Blood Pressure 146/66 Blood Pressure 145/64 O2 Sat by Pulse Oximetry 98 O2 Sat by Pulse Oximetry 98 O2 Sat by Pulse Oximetry 100 O2 Sat by Pulse Oximetry 99 O2 Sat by Pulse Oximetry 99 O2 Sat by Pulse Oximetry 100 O2 Sat by Pulse Oximetry 100 O2 Sat by Pulse Oximetry 97 O2 Sat by Pulse Oximetry 95 O2 Sat by Pulse Oximetry 97 O2 Sat by Pulse Oximetry 97 O2 Sat by Pulse Oximetry 97 Oriented: Normal Eyes: Normal Ear: Normal Nose: Normal Throat: Dry Respiratory: RLL Diminished and LLL Diminished Cardiovascular: Tachycardia : negative Hematuria Auscultation: Bowel Sounds: Normal Palpation: Normal Skin: Decreased [place] Musculoskeletal: Motor Deficit Psychiatric: Depression Mood Description: Depressed Affect: Depressed Speech Pattern: Clear and Appropriate Assessment/Plan (1) Tachycardia, unspecified: Narrative Support Text: SERIAL CE AND EKG BS CONTROL, BP CONTROL CXR ON ADMISSION RESP CONSULT CARDIAC MONITORING START METOPROLOL, DC BYSTOLIC Status: Acute (2) Hyponatremia: Status: Acute (3) Diabetes: Status: Acute (4) Hypertension: Qualifiers: Hypertension type: primary hypertension Qualified Code(s): I10 - Essential (primary) hypertension Status: Acute
[2023-12-20] MEDS: TOPROL XL PO SCH (18:15)
[2023-12-20] MEDS: NS 1,000 ML IV 1,000 ML IV SCH (18:15)
[2023-12-20 18:19] LABS: FREE T4 (FREE THYROXINE) 1.12 ng/dL (0.76-1.46); TSH (3RD GENERATION) 1.52 uIU/mL (0.358-3.74)
--- NOTE | 2023-12-20 19:57 | EKG ---
Test Reason : sob, palpitations Blood Pressure : */* mmHG Vent. Rate : 78 BPM Atrial Rate : 78 BPM P-R Int : 170 ms QRS Dur : 82 ms QT Int : 384 ms P-R-T Axes : * 70 46 degrees QTc Int : 437 ms Normal sinus rhythm Normal ECG When compared with ECG of 20-DEC-2023 14:06, No significant change was found Confirmed by Waldemar Walker MD ([id number]) on 12/21/2023 7:50:17 AM Referred By: Confirmed By: Waldemar Walker MD
[2023-12-20] MEDS ORDERED: CONSULT PHARMACY - POTASSIUM & MAGNESIUM XX SCH (20:00)
[2023-12-20] MEDS ORDERED: NovoLIN R (or HumuLIN R) SC SCH ×2 (20:00→21:00)
[2023-12-20] MEDS: PRAVACHOL PO SCH (20:44)
[2023-12-20] MEDS: MAG-OX TAB PO SCH (20:44)
[2023-12-20] MEDS: NEURONTIN CAP 400 MG PO PRN (20:44)
[2023-12-20] MEDS: DESYREL PO SCH (20:45)
[2023-12-20] MEDS: PERCOCET TAB 5/325 MG PO PRN (20:47)
[2023-12-20] MEDS: SNACK - Diabetic Appropriate PO SCH (20:47)
[2023-12-20] MEDS: COLACE CAP 100 MG PO PRN (21:59)
[2023-12-20] MEDS: NovoLIN R (or HumuLIN R) SC PRN (22:03)
[2023-12-20] MEDS: PEPCID TAB 20 MG PO SCH (23:45)
--- NOTE | 2023-12-21 01:53 | EKG ---
Test Reason : sob, palpitations Blood Pressure : */* mmHG Vent. Rate : 71 BPM Atrial Rate : 71 BPM P-R Int : 168 ms QRS Dur : 88 ms QT Int : 428 ms P-R-T Axes : * 58 36 degrees QTc Int : 465 ms Normal sinus rhythm Nonspecific T wave abnormality Abnormal ECG When compared with ECG of 20-DEC-2023 19:38, (Unconfirmed) No significant change was found Confirmed by Waldemar Walker MD ([id number]) on 12/21/2023 7:48:36 AM Referred By: Confirmed By: Waldemar Walker MD
[2023-12-21 05:13] LABS: BASOPHILS # (AUTO) 0.1 X10^3/uL (0.0-0.1); BASOPHILS % (AUTO) 0.8 % (0.2-1.0); EOSINOPHILS # (AUTO) 0.6 x10^3/uL (0.0-0.2); EOSINOPHILS % (AUTO) 6.8 % (0.9-2.9); HEMATOCRIT 32.7 % (36.0-47.0); HEMOGLOBIN 10.8 g/dL (12.0-16.0); LYMPHOCYTES # (AUTO) 2.5 X10^3/uL (1.3-2.9); LYMPHOCYTES % (AUTO) 28.2 % (21.0-51.0); MEAN CORPUSCULAR HEMOGLOBIN 27.7 pg (27.0-34.0); MEAN PLATELET VOLUME 9.4 fL (7.4-11.0); MONOCYTES # (AUTO) 0.8 x10^3/uL (0.3-0.8); MONOCYTES % (AUTO) 9.7 % (0.0-13.0); NEUTROPHILS # (AUTO) 4.7 x10^3/uL (2.2-4.8); NEUTROPHILS % (AUTO) 54.5 % (42.0-75.0); PLATELET COUNT 287 X10^3/uL (150.0-450.0); RED BLOOD COUNT 3.89 X10^6/uL (3.5-5.4); RED CELL DISTRIBUTION WIDTH 14.9 % (11.6-16.5); WHITE BLOOD COUNT 8.7 X10^3/uL (3.6-10.0)
[2023-12-21 05:27] LABS: ALBUMIN 2.6 g/dL (3.4-5.0); CALCIUM 8.8 mg/dL (8.5-10.1); CARBON DIOXIDE 28.5 mmol/L (21-32); COR CA(FOR HYPOALB) 9.9 mg/dL (8.5-10.1); CREATININE 1.24 mg/dL (0.55-1.02); MAGNESIUM 1.7 mg/dL (2.0-2.9); POTASSIUM 3.9 mmol/L (3.5-5.1); TOTAL PROTEIN 6.3 g/dL (6.4-8.2)
[2023-12-21 05:59] VITALS: TEMP 98.4
[2023-12-21] MEDS ORDERED: CONSULT PHARMACY - POTASSIUM & MAGNESIUM XX SCH (07:00)
[2023-12-21] MEDS: FARXIGA PO SCH (08:21)
[2023-12-21] MEDS: K-DUR TAB 20 MEQ PO SCH (08:21)
[2023-12-21] MEDS: MAG-OX TAB PO SCH (08:23)
[2023-12-21 08:33] VITALS: BP 131/60; PULSE 66; RESP 12; O2SAT 95
[2023-12-21] MEDS ORDERED: PATIENT'S HOME MEDICATION (Dapagliflozin Propanediol [Farxiga] 10 mg tablet) PO SCH (09:00)
[2023-12-21] MEDS ORDERED: LOVENOX INJ 40 MG SYR SC SCH (10:00)
[2023-12-21] MEDS ORDERED: PEPCID TAB 20 MG PO SCH (21:00)
== END 2023-12-21 09:55 | disposition home health service (06) ==
LOC: ICU
PROVIDERS: ADMIT Internal Medicine; ATTEND Internal Medicine
DX: E83.42 Hypomagnesemia; R00.0 Tachycardia, unspecified; I10 Essential (primary) hypertension; K21.9 Gastro-esophageal reflux disease without esophagitis; I48.91 Unspecified atrial fibrillation; R06.02 Shortness of breath; E78.5 Hyperlipidemia, unspecified; E86.1 Hypovolemia; E11.65 Type 2 diabetes mellitus with hyperglycemia

== ENCOUNTER 2024-07-18 01:43 | Observation (INO) ==
[2024-07-18 01:59] VITALS: BMI 25.4
--- NOTE | 2024-07-18 02:03 | DR.EXTPAIN ---
HPI Time seen Time Seen by Provider: 07/18/24 02:00 PCP Primary Care Physician: Krissy Wasserman HPI Comment HPI Comment: History as above. Complaint/Symptoms Chief Complaint Doctor Comments: Patient is 73 yr old female in ER after a fall. Patient is complaining of left shoulder pain, head and neck pain and skin tear right forearm. Patient complaining of polydipsia and polyuria. Patient said she tripped and fell. She hit her shoulder on the sink and hit her head. 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 Chief Complaint:: Patient was brought in by ems. 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 She fell and hit the sink with her left shoulder and hit her head. She has edema noted to left frontal area. Skin tear noted to right forearm COVID-19 Coronavirus risk:travel/contact w/high risk person: No Has patient experienced Coronavirus symptoms: No Nurses notes reviewed Nurses Notes Review: Yes Source History Provided: Patient Mode of arrival Mode of Arrival: EMS Timing Onset of Chief Complaint: 07/18/24 Associated signs and symptoms Associated Signs and Symptoms: None PMH PMH Past Medical History: Yes Past Medical History: Anxiety, Arthritis, Coronary Artery Disease, CVA, Depression, Diabetes, Dyslipidemia, GERD, Hypertension and [place] Past Surgical History: Yes Surgical History: Appendectomy, Cholecystectomy and Hysterectomy Family History History of Family Medical Conditions: Yes Family Medical History: Diabetes Mellitus, [place], Coronary Artery Disease and Hypertension Social History Do you use any recreational Drugs:: No Travel Risk Coronavirus risk:travel/contact w/high risk person: No Has patient experienced Coronavirus symptoms: No Infectious screening In the last 2 months have you had wt loss of >10#?: NO Have you had fever, night sweats or hemotysis?: No Have you traveled outside the country in the last 6 months?: No Isolation: Standard ROS Review of Systems Constitutional: No Symptoms Reported; negative Fever Eyes: No Symptoms Reported ENTM: No Symptoms Reported; negative Nose Discharge, Epistaxis or Nose Congestion Respiratoy: No Symptoms Reported; negative Moist Cough or Short of Breath Cardiovascular: No Symptoms Reported; negative Chest Pain Gastrointestinal/Abdominal: No Symptoms Reported; negative Nausea or Vomiting Genitourinary: No Symptoms Reported; negative Dysuria Neurological: Headache; negative Dizziness Musculoskeletal: Shoulder (left shoulder pain) Integumentary: Wound (skin tear right forearm.) and Bruises (left forehead.) Hematologic/Lymphatic: Easy Bleeding and Easy Bruising Endocrine: Increased Thirst and Increased Urine Psychiatric: No Symptoms Reported All Other Systems: Reviewed and Negative PE Vital Signs Vitals: Vital Signs Temperature 98.1 F Pulse Rate 82 Pulse Rate 81 Pulse Rate 79 Pulse Rate 77 Pulse Rate 78 Pulse Rate 77 Pulse Rate 77 Pulse Rate 76 Pulse Rate 78 Pulse Rate 76 Pulse Rate 76 Pulse Rate 76 Pulse Rate 76 Pulse Rate 71 Pulse Rate 73 Pulse Rate 73 Pulse Rate 78 Pulse Rate 78 Pulse Rate 78 Pulse Rate 80 Pulse Rate 81 Pulse Rate 82 Pulse Rate 81 Pulse Rate 83 Pulse Rate 82 Pulse Rate 88 Pulse Rate 89 Respiratory Rate 34 Respiratory Rate 24 Respiratory Rate 19 Respiratory Rate 20 Respiratory Rate 19 Respiratory Rate 17 Respiratory Rate 22 Respiratory Rate 17 Respiratory Rate 18 Respiratory Rate 21 Respiratory Rate 15 Respiratory Rate 22 Respiratory Rate 20 Respiratory Rate 24 Respiratory Rate 19 Respiratory Rate 32 Respiratory Rate 27 Respiratory Rate 29 Respiratory Rate 35 Respiratory Rate 38 Respiratory Rate 45 Respiratory Rate 25 Respiratory Rate 24 Respiratory Rate 15 Respiratory Rate 15 Respiratory Rate 17 Respiratory Rate 16 Respiratory Rate 18 Blood Pressure 117/57 Blood Pressure 136/58 Blood Pressure 158/68 Blood Pressure 150/66 Blood Pressure 150/66 Blood Pressure 160/71 Blood Pressure 183/77 Blood Pressure 137/64 Blood Pressure 130/58 O2 Sat by Pulse Oximetry 98 O2 Sat by Pulse Oximetry 96 O2 Sat by Pulse Oximetry 97 O2 Sat by Pulse Oximetry 97 O2 Sat by Pulse Oximetry 97 O2 Sat by Pulse Oximetry 99 O2 Sat by Pulse Oximetry 99 O2 Sat by Pulse Oximetry 98 O2 Sat by Pulse Oximetry 98 O2 Sat by Pulse Oximetry 99 O2 Sat by Pulse Oximetry 99 O2 Sat by Pulse Oximetry 99 O2 Sat by Pulse Oximetry 98 O2 Sat by Pulse Oximetry 98 O2 Sat by Pulse Oximetry 100 O2 Sat by Pulse Oximetry 99 O2 Sat by Pulse Oximetry 99 O2 Sat by Pulse Oximetry 98 O2 Sat by Pulse Oximetry 98 O2 Sat by Pulse Oximetry 97 O2 Sat by Pulse Oximetry 98 O2 Sat by Pulse Oximetry 97 O2 Sat by Pulse Oximetry 98 O2 Sat by Pulse Oximetry 98 O2 Sat by Pulse Oximetry 96 General Limitations: No Limitations General Appearance: Alert and In No Apparent Distress Head Head Exam: Other (Scalp and left forehead bruising and tenderness.) Eyes Eye exam: Normal Appearance, PERRL and EOMI; negative Scleral Icterus or Conjunctival Injection ENT ENT Exam: Normal Exam, Normal Oropharynx, Normal External Ear Exam and TM's Normal Bilaterally Neck Neck Exam: Normal Inspection, Trachea Midline and Tenderness (POSTERIOR NECK) Chest Chest Inspection: Normal Inspection and Symmetric Chest Wall Rise; negative Tenderness Respiratory Respiratory Exam: Normal Lung Sounds Bilat; negative Accessory Muscle Use, Chest Wall Tenderness or Respiratory Distress Respiratory Exam: Bilateral: Rhonchi Cardiovascular Cardiovascular Exam: Regular Rate, Normal Rhythm and Normal Heart Sounds; negative Systolic Murmur or Diastolic Murmur Abdominal Exam Abdominal Exam: Normal Inspection, Normal Bowel Sounds and Soft; negative Tenderness Extremities Extremities Exam: Tenderness (SWELING, TENDERNESS AND DECREASE ROM LWFT SHOULDER.) and Normal Capillary Refill; negative Full ROM Upper Extremities Shoulder Exam: Tenderness and Swelling Arm Exam: Tenderness Back Back Exam: Normal Inspection; negative (R) CVA Tenderness or (L) CVA Tenderness Neurological Neurological Exam: Alert and Oriented X3; negative Motor Sensory Deficit Psychiatric Psychiatric Exam: Normal Affect and Normal Mood Skin Skin Exam: Erythema and Other (left arm skin tear.) Type of Lesion: Abscess (skin tear.) MDM Differential Diagnosis Differential Diagnosis: Abrasion (left forearm.), Contusion (head, neck, left shuolder right forearm), Fracture (left shoulder and neck.) and Sprain (left s houlder) COURSE Treatment Treatment: See orders done while patient was in ER. Labs, CT and Xray discussed. Patient admitted in hospital for management of hyperglycemia. Consultation Consultation Comments: Patient discussed with Dr. MORENO. He will admit patient. Education/Counseling Education/Counseling: Patient Educated On: Diagnosis ROR Labs Reviewed Laboratory Results Reviewed?: Yes 07/18/24 02:15 07/18/24 05:58 Laboratory: WBC 7.9 X10^3/uL (3.6-10.0) 07/18/24 02:15 RBC 4.76 X10^6/uL (3.5-5.4) 07/18/24 02:15 Hgb 13.2 g/dL (12.0-16.0) 07/18/24 02:15 Hct 40.4 % (36.0-47.0) 07/18/24 02:15 MCV 84.9 fL (80.0-100.0) 07/18/24 02:15 MCH 27.8 pg (27.0-34.0) 07/18/24 02:15 MCHC 32.7 g/dL (33.0-35.0) L 07/18/24 02:15 RDW 14.6 % (11.6-16.5) 07/18/24 02:15 Plt Count 200 X10^3/uL (150.0-450.0) 07/18/24 02:15 Plt Count Comment Adequate (ADEQUATE) 07/18/24 02:15 MPV 10.8 fL (7.4-11.0) 07/18/24 02:15 Neut % (Auto) 69.7 % (42.0-75.0) 07/18/24 02:15 Lymph % (Auto) 18.5 % (21.0-51.0) L 07/18/24 02:15 Pierce % (Auto) 6.1 % (0.0-13.0) 07/18/24 02:15 Eos % (Auto) 4.5 % (0.9-2.9) H 07/18/24 02:15 Baso % (Auto) 1.2 % (0.2-1.0) H 07/18/24 02:15 Neut # (Auto) 5.5 x10^3/uL (2.2-4.8) H 07/18/24 02:15 Lymph # (Auto) 1.5 X10^3/uL (1.3-2.9) 07/18/24 02:15 Pierce # (Auto) 0.5 x10^3/uL (0.3-0.8) 07/18/24 02:15 Eos # (Auto) 0.4 x10^3/uL (0.0-0.2) H 07/18/24 02:15 Baso # (Auto) 0.1 X10^3/uL (0.0-0.1) 07/18/24 02:15 Absolute Nucleated RBC 0.2 /100WBC 07/18/24 02:15 Plt Morphology Comment Normal (NORMAL) 07/18/24 02:15 RBC Morphology Abnormal (NORMAL) A 07/18/24 02:15 Anisocytosis Slight A 07/18/24 02:15 Tear Drop Cells Slight A 07/18/24 02:15 Sample Site Rr 07/18/24 03:00 ABG pH 7.420 (7.35-7.45) 07/18/24 03:00 ABG pCO2 44.0 mmHg (35.0-45.0) 07/18/24 03:00 ABG pO2 73.0 mmHg (80.0-100.0) L 07/18/24 03:00 ABG HCO3 28.5 mmol/L (22-26) H 07/18/24 03:00 ABG O2 Saturation 95.0 % (90-100) 07/18/24 03:00 ABG Base Excess 3.5 mmol/L (-2.0-2.0) H 07/18/24 03:00 Dante Test Pos 07/18/24 03:00 A-a Gradient 22.0 mmHg 07/18/24 03:00 FiO2 21.0 07/18/24 03:00 Blood Gas Comments Winnie well sw 07/18/24 03:00 Sodium 131 mmol/L (136-145) L 07/18/24 05:58 Corrected Sodium 142 mmol/L (136-145) 07/18/24 05:58 Potassium 4.0 mmol/L (3.5-5.1) 07/18/24 05:58 Chloride 93 mmol/L (98-107) L 07/18/24 05:58 Carbon Dioxide 27.7 mmol/L (21-32) 07/18/24 05:58 BUN 35 mg/dL (7-18) H 07/18/24 05:58 Creatinine 1.66 mg/dL (0.55-1.02) H 07/18/24 05:58 Est GFR (MDRD) Af Amer 39 (>60) L 07/18/24 05:58 Est GFR (MDRD) Non-Af 32 (>60) L 07/18/24 05:58 Glucose 571 mg/dL (65-99) H* 07/18/24 05:58 Calcium 9.3 mg/dL (8.5-10.1) 07/18/24 05:58 Corrected Calcium 10.4 mg/dL (8.5-10.1) H 07/18/24 02:15 Total Bilirubin 0.50 mg/dL (0.2-1.0) 07/18/24 02:15 AST 21 Units/L (15-37) 07/18/24 02:15 ALT 23 Units/L (12-78) 07/18/24 02:15 Alkaline Phosphatase 216 Units/L (46-116) H 07/18/24 02:15 B-Natriuretic Peptide 20.5 pg/mL (0-79) 07/18/24 03:43 Total Protein 7.2 g/dL (6.4-8.2) 07/18/24 02:15 Albumin 3.3 g/dL (3.4-5.0) L 07/18/24 02:15 Globulin 3.9 g/dL (2.5-4.5) 07/18/24 02:15 Albumin/Globulin Ratio 0.8 Ratio (1.1-2.1) L 07/18/24 02:15 Acetone, Semi-Quant Small (NEGATIVE) H 07/18/24 03:10 XRAY XRAY Interpreted by: Radiologist (Report noted.) Opioid Opioid Risk Tool Age (David box if 16-45): No History of Preadolescent Sexual Abuse: No Total: 0 Total Score Risk Category: Low Risk Copyright: Gopal GRADY predicting aberrant behaviors Discharge Plan Diagnosis Discharge Problem: Hyperosmolar hyperglycemic state (HHS), Hyponatremia, Dehydration Fall Qualifiers: Encounter type: initial encounter Qualified Code(s): W19.XXXA - Unspecified fall, initial encounter Shoulder fracture, left Qualifiers: Encounter type: initial encounter Fracture type: closed Qualified Code(s): S42.92XA - Fracture of left shoulder girdle, part unspecified, initial encounter for closed fracture Discharge Plan Patient Disposition: ADMITTED INPATIENT Condition: Stable
[2024-07-18 02:27] LABS: BASOPHILS # (AUTO) 0.1 X10^3/uL (0.0-0.1); BASOPHILS % (AUTO) 1.2 % (0.2-1.0); EOSINOPHILS # (AUTO) 0.4 x10^3/uL (0.0-0.2); EOSINOPHILS % (AUTO) 4.5 % (0.9-2.9); HEMATOCRIT 40.4 % (36.0-47.0); HEMOGLOBIN 13.2 g/dL (12.0-16.0); LYMPHOCYTES # (AUTO) 1.5 X10^3/uL (1.3-2.9); LYMPHOCYTES % (AUTO) 18.5 % (21.0-51.0); MEAN CORPUSCULAR HEMOGLOBIN 27.8 pg (27.0-34.0); MEAN CORPUSCULAR HGB CONC 32.7 g/dL (33.0-35.0); MEAN CORPUSCULAR VOLUME 84.9 fL (80.0-100.0); MEAN PLATELET VOLUME 10.8 fL (7.4-11.0); MONOCYTES # (AUTO) 0.5 x10^3/uL (0.3-0.8); MONOCYTES % (AUTO) 6.1 % (0.0-13.0); NEUTROPHILS # (AUTO) 5.5 x10^3/uL (2.2-4.8); NEUTROPHILS % (AUTO) 69.7 % (42.0-75.0); PLATELET COUNT 200 X10^3/uL (150.0-450.0); RED BLOOD COUNT 4.76 X10^6/uL (3.5-5.4); RED CELL DISTRIBUTION WIDTH 14.6 % (11.6-16.5); WHITE BLOOD COUNT 7.9 X10^3/uL (3.6-10.0)
[2024-07-18 02:45] LABS: ALBUMIN 3.3 g/dL (3.4-5.0); CARBON DIOXIDE 28.6 mmol/L (21-32); POTASSIUM 4.8 mmol/L (3.5-5.1); TOTAL PROTEIN 7.2 g/dL (6.4-8.2)
[2024-07-18 02:54] LABS: ANISOCYTOSIS SLIGHT; PLATELET MORPHOLOGY COMMENT NORMAL (NORMAL); TEAR DROP CELLS SLIGHT
[2024-07-18 02:55] LABS: CALCIUM 9.8 mg/dL (8.5-10.1); COR CA(FOR HYPOALB) 10.4 mg/dL (8.5-10.1); CREATININE 1.84 mg/dL (0.55-1.02)
[2024-07-18] MEDS: NS 1,000 ML IV 1,000 ML IV ONE ×2 (03:14→04:34)
[2024-07-18 03:21] LABS: ABG BASE EXCESS 3.5 mmol/L (-2.0-2.0); ABG HCO3 28.5 mmol/L (22-26)
[2024-07-18 03:22] LABS: ABG ALLEN TEST POS
[2024-07-18] MEDS: NovoLIN R (or HumuLIN R) IV ONE (04:51)
--- NOTE | 2024-07-18 05:19 | CT ---
EXAM:CT HEAD WITHOUT CONTRASTHISTORY:Patient was brought in by ems. 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 She fell and hit the sink with her left shoulder and hit her head. ; [place], CAD, HTN, DM, CVA, GERD SX: APPY, BARBARA, HYSTCOMPARISON:None.TECHNIQUE:Axial CT images were obtained through the brain without contrast.All CT scans at this facility use dose modulation, iterative reconstruction, and/or weight based dosing when appropriate to reduce radiation dose to as low as reasonably achievable.FINDINGS:BRAIN: There is mild diffuse atrophy with proportionate enlargement of the cerebral sulci and ventricular system. Decreased attenuation in the periventricular white matter is compatible with but not specific for chronic small vessel ischemic changes. No evidence of acute infarct intra or extraaxial hemorrhage mass effect or hydrocephalus.CALVARIUM: Minimal left frontal scalp hematoma.ADDITIONAL FINDINGS: The visualized paranasal sinuses and mastoid air cells are clear. Orbits are grossly unremarkable.IMPRESSION:No evidence of acute intracranial process.THIS IS AN ELECTRONICALLY VERIFIED FINAL REPORT07/18/2024 5:15 AM - Electronically signed by Scott Charles MD
--- NOTE | 2024-07-18 05:19 | CT ---
EXAM:CT CERVICAL SPINE WITHOUT CONTRASTHISTORY:Patient was brought in by ems. 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 She fell and hit the sink with her left shoulder and hit her head. ; [place], CAD, HTN, DM, CVA, GERD SX: APPY, BARBARA, HYST .COMPARISON:None.TECHNIQUE:Axial CT images were obtained through the cervical spine without contrast. Coronal and sagittal reformations were post processed.All CT scans at this facility use dose modulation, iterative reconstruction, and/or weight based dosing when appropriate to reduce radiation dose to as low as reasonably achievable.FINDINGS:C-SPINE: Moderate multilevel degenerative disc disease is noted. Curvature vertebral body heights and alignment are maintained.SURROUNDING SOFT TISSUES: Within normal limits.LUNG APICES: Within normal limits.IMPRESSION:No evidence of acute findings on cervical spine exam.THIS IS AN ELECTRONICALLY VERIFIED FINAL REPORT07/18/2024 5:16 AM - Electronically signed by Scott Charles MD
[2024-07-18] MEDS: MORPHINE SULFATE INJ 2 MG INJ IVP ONE (05:48)
[2024-07-18] MEDS: ZOFRAN INJ 4 MG VIAL IVP ONE (05:48)
[2024-07-18 06:20] LABS: CALCIUM 9.3 mg/dL (8.5-10.1); CARBON DIOXIDE 27.7 mmol/L (21-32); CREATININE 1.66 mg/dL (0.55-1.02)
--- NOTE | 2024-07-18 08:35 | EKG ---
Test Reason : HTN Blood Pressure : */* mmHG Vent. Rate : 80 BPM Atrial Rate : 80 BPM P-R Int : 158 ms QRS Dur : 84 ms QT Int : 420 ms P-R-T Axes : * 69 69 degrees QTc Int : 484 ms Normal sinus rhythm Nonspecific T wave abnormality Prolonged QT Abnormal ECG When compared with ECG of 08-MAY-2024 10:56, No significant change was found Confirmed by Waldemar Walker MD ([id number]) on 07/18/2024 9:05:19 AM Referred By: Confirmed By: Waldemar Walker MD
[2024-07-18] MEDS: NS 1,000 ML IV 1,000 ML IV SCH (09:35)
[2024-07-18] MEDS: FARXIGA PO SCH (09:36)
[2024-07-18] MEDS: CYMBALTA PO SCH (09:36)
[2024-07-18] MEDS: PLAQUENIL PO SCH (09:36)
[2024-07-18] MEDS: MORPHINE SULFATE INJ 4 MG IVP PRN (09:42)
[2024-07-18] MEDS: PATIENT'S HOME MEDICATION (Cariprazine [Vraylar] 1.5 mg capsule) PO SCH (09:43)
[2024-07-18] MEDS: TOPROL XL PO SCH (09:48)
[2024-07-18] MEDS: NovoLIN R (or HumuLIN R) SUBCUT PRN (09:51)
--- NOTE | 2024-07-18 10:16 | RAD ---
EXAM:SHOULDER, LEFT two-viewHISTORY:Patient was brought in by ems. 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 She fell and hit the sink with her left shoulder and hit her head. ; [place], CAD, HTN, DM, CVA, GERD SX: APPY, BARBARA, HYSTCOMPARISON:NoneFINDINGS:The glenohumeral joint appears intact. Proximal left humerus fracture involving at least the surgical neck. The visualized portions of the scapula appear intact.The visualized portions of the chest demonstrate no acute process.IMPRESSION:Proximal humerus fracture.THIS IS AN ELECTRONICALLY VERIFIED FINAL REPORT07/18/2024 10:12 AM - Electronically signed by Emiliano Nieves MD
[2024-07-18 12:05] LABS: BILIRUBIN,URINE NEGATIVE (NEGATIVE); BLOOD/HEMOGLOBIN,URINE NEGATIVE (NEGATIVE); GLUCOSE, URINE 4+ (NEGATIVE); KETONES,URINE 2+ (NEGATIVE); LEUKOCYTE ESTERASE ,URINE NEGATIVE (NEGATIVE); NITRITES,URINE NEGATIVE (NEGATIVE); PROTEIN,URINE NEGATIVE (NEGATIVE); UROBILINOGEN,URINE NORMAL (NORMAL)
[2024-07-18 12:06] LABS: APPEARANCE,URINE CLEAR (CLEAR); COLOR,URINE YELLOW (YELLOW)
[2024-07-18] MEDS: LOVENOX INJ 30 MG SYR SC SCH (12:06)
[2024-07-18] MEDS: NovoLIN R (or HumuLIN R) ONE (13:34)
--- NOTE | 2024-07-18 14:16 | DR.H&P ---
H&P History & Physical for Day of: H&P Date: 07/18/24 Chief Complaint Chief Complaint: FALL, LEFT ARM PAIN History of Present Illness History of Present Illness: PT IS 73 WF, ER ADMISSION WITH CO TRIPPED AND FELL LICENSED MIDWIFE INJURY LUE. PT DENIES ANY CP OR SOB, NO RECENT FEVER OR FLU LIKE SYMPTOMS. PT HAS PMH OF HTN, OA, SIDRA, MDD, CRF, NEUROPATHY. PT ADMITTED FOR TREATMENT AND EVALUATION OF ACUTE ILLNESS Past Medical History Past Medical History: Anxiety, Arthritis, Coronary Artery Disease, CVA, Depression, Diabetes, Dyslipidemia, GERD, Hypertension and [place] Past Surgical History Surgical History: Appendectomy, Cholecystectomy, Hysterectomy and Tonsillectomy Family History Family Medical History: Diabetes Mellitus, [place], Coronary Artery Disease and Hypertension Social History Type of Tobacco Use: None Alcohol Use: None Drug Use: None Medications Home Medications: Home Medications Medication Instructions Recorded Confirmed Type bupropion HCl 150 mg 24 hr tablet, 150 mg PO QAM 09/08/22 07/18/24 History extended release buspirone 7.5 mg tablet 7.5 mg PO BID 09/08/22 07/18/24 History famotidine 20 mg tablet 20 mg PO BID 09/08/22 07/18/24 History gabapentin 800 mg tablet 800 mg PO TID 09/08/22 07/18/24 History hydroxychloroquine 200 mg tablet 200 mg PO QDAY 09/08/22 07/18/24 History nitroglycerin 0.4 mg sublingual See Rx Instructions .Route 09/08/22 07/18/24 History tablet .COMPLEX PRN Chest Pain aspirin 81 mg chewable tablet 81 mg PO QDAY 07/27/23 07/18/24 History cariprazine 1.5 mg capsule 1.5 mg PO QDAY 07/27/23 07/18/24 History (Vraylar) clonidine HCl 0.1 mg tablet 0.1 mg PO BID 07/27/23 07/18/24 History dapagliflozin propanediol 10 mg 10 mg PO QDAY 07/27/23 07/18/24 History tablet (Farxiga) duloxetine 60 mg capsule,delayed 60 mg PO QDAY 07/27/23 07/18/24 History release meclizine 25 mg tablet 25 mg PO TID PRN 07/27/23 07/18/24 History trazodone 100 mg tablet 100 mg PO QPM 07/27/23 07/18/24 History semaglutide 0.25 mg or 0.5 mg (2 0.5 mg subcut QWEEK 11/24/23 07/18/24 History mg/3 mL) subcutaneous pen injector (Ozempic) insulin regular human 100 unit/mL See Rx Instructions .Route 12/11/23 07/18/24 History injection solution (Humulin R .COMPLEX PRN Regular U-100 Insulin) fluticasone propionate 50 1 spray intranasal DAILY 05/08/24 07/18/24 History mcg/actuation nasal spray,suspension hydroxyzine HCl 25 mg tablet 25 mg PO TID 05/08/24 07/18/24 History nystatin 100,000 unit/gram topical 1 applic topical BID 05/08/24 07/18/24 History cream pantoprazole 40 mg tablet,delayed 40 mg PO DAILY 05/08/24 07/18/24 History release oxycodone myristate 9 mg capsule 9 mg PO BID 07/18/24 07/18/24 History sprinkle extended release 12 hr(DON'T CRUSH) (Xtampza ER) tizanidine 4 mg capsule 4 mg PO QID 07/18/24 07/18/24 History Allergies Allergies Allergy/AdvReac Type Severity Reaction Status Date / Time No Known Drug Allergies Allergy Verified 07/11/24 10:35 Labs 07/18/24 02:15 07/18/24 05:58 Labs: Laboratory WBC 7.9 X10^3/uL (3.6-10.0) 07/18/24 02:15 RBC 4.76 X10^6/uL (3.5-5.4) 07/18/24 02:15 Hgb 13.2 g/dL (12.0-16.0) 07/18/24 02:15 Hct 40.4 % (36.0-47.0) 07/18/24 02:15 MCV 84.9 fL (80.0-100.0) 07/18/24 02:15 MCH 27.8 pg (27.0-34.0) 07/18/24 02:15 MCHC 32.7 g/dL (33.0-35.0) L 07/18/24 02:15 RDW 14.6 % (11.6-16.5) 07/18/24 02:15 Plt Count 200 X10^3/uL (150.0-450.0) 07/18/24 02:15 Plt Count Comment Adequate (ADEQUATE) 07/18/24 02:15 MPV 10.8 fL (7.4-11.0) 07/18/24 02:15 Neut % (Auto) 69.7 % (42.0-75.0) 07/18/24 02:15 Lymph % (Auto) 18.5 % (21.0-51.0) L 07/18/24 02:15 Sherman % (Auto) 6.1 % (0.0-13.0) 07/18/24 02:15 Eos % (Auto) 4.5 % (0.9-2.9) H 07/18/24 02:15 Baso % (Auto) 1.2 % (0.2-1.0) H 07/18/24 02:15 Neut # (Auto) 5.5 x10^3/uL (2.2-4.8) H 07/18/24 02:15 Lymph # (Auto) 1.5 X10^3/uL (1.3-2.9) 07/18/24 02:15 Sherman # (Auto) 0.5 x10^3/uL (0.3-0.8) 07/18/24 02:15 Eos # (Auto) 0.4 x10^3/uL (0.0-0.2) H 07/18/24 02:15 Baso # (Auto) 0.1 X10^3/uL (0.0-0.1) 07/18/24 02:15 Absolute Nucleated RBC 0.2 /100WBC 07/18/24 02:15 Plt Morphology Comment Normal (NORMAL) 07/18/24 02:15 RBC Morphology Abnormal (NORMAL) A 07/18/24 02:15 Anisocytosis Slight A 07/18/24 02:15 Tear Drop Cells Slight A 07/18/24 02:15 Sample Site Rr 07/18/24 03:00 ABG pH 7.420 (7.35-7.45) 07/18/24 03:00 ABG pCO2 44.0 mmHg (35.0-45.0) 07/18/24 03:00 ABG pO2 73.0 mmHg (80.0-100.0) L 07/18/24 03:00 ABG HCO3 28.5 mmol/L (22-26) H 07/18/24 03:00 ABG O2 Saturation 95.0 % (90-100) 07/18/24 03:00 ABG Base Excess 3.5 mmol/L (-2.0-2.0) H 07/18/24 03:00 Dante Test Pos 07/18/24 03:00 A-a Gradient 22.0 mmHg 07/18/24 03:00 FiO2 21.0 07/18/24 03:00 Blood Gas Comments Winnie well sw 07/18/24 03:00 Sodium 131 mmol/L (136-145) L 07/18/24 05:58 Corrected Sodium 142 mmol/L (136-145) 07/18/24 05:58 Potassium 4.0 mmol/L (3.5-5.1) 07/18/24 05:58 Chloride 93 mmol/L (98-107) L 07/18/24 05:58 Carbon Dioxide 27.7 mmol/L (21-32) 07/18/24 05:58 BUN 35 mg/dL (7-18) H 07/18/24 05:58 Creatinine 1.66 mg/dL (0.55-1.02) H 07/18/24 05:58 Est GFR (MDRD) Af Amer 39 (>60) L 07/18/24 05:58 Est GFR (MDRD) Non-Af 32 (>60) L 07/18/24 05:58 Glucose 571 mg/dL (65-99) H* 07/18/24 05:58 POC Glucose (mg/dL) 349 mg/dL (65-99) H 07/18/24 11:52 Calcium 9.3 mg/dL (8.5-10.1) 07/18/24 05:58 Corrected Calcium 10.4 mg/dL (8.5-10.1) H 07/18/24 02:15 Total Bilirubin 0.50 mg/dL (0.2-1.0) 07/18/24 02:15 AST 21 Units/L (15-37) 07/18/24 02:15 ALT 23 Units/L (12-78) 07/18/24 02:15 Alkaline Phosphatase 216 Units/L (46-116) H 07/18/24 02:15 Creatine Kinase 37 Units/L (26-192) 07/18/24 09:12 Troponin I High Sens 14.4 ng/L (4.0-60.0) 07/18/24 09:12 B-Natriuretic Peptide 20.5 pg/mL (0-79) 07/18/24 03:43 Total Protein 7.2 g/dL (6.4-8.2) 07/18/24 02:15 Albumin 3.3 g/dL (3.4-5.0) L 07/18/24 02:15 Globulin 3.9 g/dL (2.5-4.5) 07/18/24 02:15 Albumin/Globulin Ratio 0.8 Ratio (1.1-2.1) L 07/18/24 02:15 Specimen Type Clean catch urine 07/18/24 11:55 Urine Color Yellow (YELLOW) 07/18/24 11:55 Urine Appearance Clear (CLEAR) 07/18/24 11:55 Urine pH 5.0 (5.0 - 8.0) 07/18/24 11:55 Ur Specific Felt 1.015 (1.000-1.030) 07/18/24 11:55 Urine Protein Negative (NEGATIVE) 07/18/24 11:55 Urine Glucose (UA) 4+ (NEGATIVE) 07/18/24 11:55 Urine Ketones 2+ (NEGATIVE) 07/18/24 11:55 Urine Blood Negative (NEGATIVE) 07/18/24 11:55 Urine Nitrite Negative (NEGATIVE) 07/18/24 11:55 Urine Bilirubin Negative (NEGATIVE) 07/18/24 11:55 Urine Urobilinogen Normal (NORMAL) 07/18/24 11:55 Ur Leukocyte Esterase Negative (NEGATIVE) 07/18/24 11:55 Acetone, Semi-Quant Small (NEGATIVE) H 07/18/24 03:10 Review of Systems Constitutional: Weakness Eyes: No Symptoms Reported ENT: No Symptoms Reported Respiratory: Shortness of Breath Cardiovascular: No Symptoms Reported Gastrointestinal: Nausea Genitourinary: No Symptoms Reported Musculoskeletal: Arm Pain and Leg Pain Skin: No Symptoms Reported Neurological: Weakness Physical Exam Vital Signs: Vital Signs Temperature 97.9 F Pulse Rate [Bilateral Radial] 81 Pulse Rate 82 Pulse Rate 81 Pulse Rate 79 Pulse Rate 77 Pulse Rate 78 Pulse Rate 77 Respiratory Rate 18 Respiratory Rate 20 Respiratory Rate 17 Respiratory Rate 34 Respiratory Rate 24 Respiratory Rate 19 Respiratory Rate 20 Respiratory Rate 19 Respiratory Rate 17 Respiratory Rate 22 Blood Pressure [Right Arm] 151/67 Blood Pressure 117/57 Blood Pressure 136/58 O2 Sat by Pulse Oximetry 97 O2 Sat by Pulse Oximetry 98 O2 Sat by Pulse Oximetry 96 O2 Sat by Pulse Oximetry 97 O2 Sat by Pulse Oximetry 97 O2 Sat by Pulse Oximetry 97 Oriented: Normal Eyes: Normal Ear: Normal Nose: Normal Throat: Normal Respiratory: Diminished Throughout Cardiovascular: Normal Auscultation: Bowel Sounds: Normal Palpation: Normal Tenderness: Normal Skin: Decreased Turgur, Tender and Bruising Musculoskeletal: Arm, Tender, Deformity and Motor Deficit Psychiatric: Anxiety and Depression Mood Description: Depressed Affect: Normal Speech Pattern: Clear and Appropriate Assessment/Plan (1) Shoulder fracture, left: Status: Acute Plan: ADMIT, PAIN CONTROL VTE PROTOCOL, LUE SLING BP CONTROL, VERIFY AND RESUME HOME MEDICATIONS ORTHO CONSULT BS CONTROL (2) Fall: Status: Acute (3) CHF (congestive heart failure): Status: Acute (4) Hyperosmolar hyperglycemic state (HHS): Status: Acute (5) Hyponatremia: Status: Acute (6) Dehydration: Status: Acute
--- NOTE | 2024-07-18 14:31 | EKG ---
Test Reason : HTN Blood Pressure : */* mmHG Vent. Rate : 79 BPM Atrial Rate : 79 BPM P-R Int : 160 ms QRS Dur : 84 ms QT Int : 422 ms P-R-T Axes : * 69 77 degrees QTc Int : 483 ms Normal sinus rhythm Low voltage QRS Nonspecific ST and T wave abnormality Abnormal ECG When compared with ECG of 18-JUL-2024 08:01, No significant change was found Confirmed by Waldemar Walker MD ([id number]) on 07/18/2024 5:44:54 PM Referred By: Confirmed By: Waldemar Walker MD
--- NOTE | 2024-07-18 15:29 | DR.CONSULT ---
CONSULT Consultation for Day of: Date: 07/18/24 Chief Complaint Chief Complaint: Left Shoulder pain Allergies Allergies Allergy/AdvReac Type Severity Reaction Status Date / Time No Known Drug Allergies Allergy Verified 07/11/24 10:35 History of Present Illness History of Present Illness: Malinda is a 73 y/o F admitted to [facility] for the chief complaint of Left shoulder pain. Past Medical History Past Medical History: Anxiety, Arthritis, Coronary Artery Disease, CVA, Depression, Diabetes, Dyslipidemia, GERD, Hypertension and CT Past Surgical History Surgical History: Appendectomy, Cholecystectomy, Hysterectomy and Tonsillectomy Family History Family Medical History: Diabetes Mellitus, CT, Coronary Artery Disease and Hypertension Social History Type of Tobacco Use: None Alcohol Use: None Drug Use: None Medications Home Medications: No Known Drug Allergies Allergy (Verified 07/11/24 10:35) CONTINUE taking the following medications oxycodone myristate 9 mg capsule sprinkle extended release 12 hr(DON'T CRUSH) (Xtampza ER) 9 mg PO BID 07/18/24 [History] tizanidine 4 mg capsule 4 mg PO QID 07/18/24 [History] Physical Exam Vital Signs: Vital Signs Temperature 97.9 F Pulse Rate [Bilateral Radial] 81 Respiratory Rate 20 Respiratory Rate 18 Respiratory Rate 20 Respiratory Rate 17 Blood Pressure [Right Arm] 151/67 O2 Sat by Pulse Oximetry 97 Plan (1) Shoulder fracture, left: Status: Acute Narrative Support Text: I independently reviewed her Left shoulder xrays from [facility] which demonstrate a non-displaced proximal humerus fracture. I recommend conservative treatment of this injury. I recommend sling immobilization and NWB to the LUE. Upon discharge she may follow up with us on an outpatient basis for further assessment. No surgical indications. Thank you for the consult. Please call with any questions. (2) Fall: Status: Acute (3) CHF (congestive heart failure): Status: Acute (4) Hyperosmolar hyperglycemic state (HHS): Status: Acute (5) Hyponatremia: Status: Acute (6) Dehydration: Status: Acute
--- NOTE | 2024-07-18 20:22 | EKG ---
Test Reason : HTN Blood Pressure : */* mmHG Vent. Rate : 77 BPM Atrial Rate : 77 BPM P-R Int : 152 ms QRS Dur : 82 ms QT Int : 426 ms P-R-T Axes : -21 57 66 degrees QTc Int : 482 ms Normal sinus rhythm Low voltage QRS Nonspecific ST and T wave abnormality Abnormal ECG When compared with ECG of 18-JUL-2024 14:00, Nonspecific T wave abnormality now evident in Lateral leads Confirmed by Waldemar Walker MD ([id number] on 07/19/2024 5:20:31 AM Referred By: Confirmed By: Waldemar Walker MD
[2024-07-18] MEDS: DESYREL PO SCH (21:35)
[2024-07-18] MEDS: SNACK - Diabetic Appropriate PO SCH (21:35)
[2024-07-19] MEDS: COLACE CAP 100 MG PO SCH (01:51)
[2024-07-19 06:09] LABS: BASOPHILS % (AUTO) 0.4 % (0.2-1.0); EOSINOPHILS # (AUTO) 0.4 x10^3/uL (0.0-0.2); EOSINOPHILS % (AUTO) 5.5 % (0.9-2.9); HEMATOCRIT 36.5 % (36.0-47.0); HEMOGLOBIN 12.4 g/dL (12.0-16.0); LYMPHOCYTES # (AUTO) 1.7 X10^3/uL (1.3-2.9); LYMPHOCYTES % (AUTO) 22.4 % (21.0-51.0); MEAN CORPUSCULAR HEMOGLOBIN 28.2 pg (27.0-34.0); MEAN CORPUSCULAR HGB CONC 33.9 g/dL (33.0-35.0); MEAN PLATELET VOLUME 10.1 fL (7.4-11.0); MONOCYTES # (AUTO) 0.5 x10^3/uL (0.3-0.8); MONOCYTES % (AUTO) 6.1 % (0.0-13.0); NEUTROPHILS % (AUTO) 65.6 % (42.0-75.0); PLATELET COUNT 223 X10^3/uL (150.0-450.0); RED CELL DISTRIBUTION WIDTH 15.1 % (11.6-16.5); WHITE BLOOD COUNT 7.6 X10^3/uL (3.6-10.0)
[2024-07-19 06:33] LABS: ALBUMIN 2.8 g/dL (3.4-5.0); CALCIUM 9.1 mg/dL (8.5-10.1); CARBON DIOXIDE 26.3 mmol/L (21-32); CHOL/HDL RATIO 3.4 (0.0-5.0); COR CA(FOR HYPOALB) 10.1 mg/dL (8.5-10.1); CREATININE 1.17 mg/dL (0.55-1.02); MAGNESIUM 1.9 mg/dL (2.0-2.9); POTASSIUM 3.7 mmol/L (3.5-5.1); TOTAL PROTEIN 6.7 g/dL (6.4-8.2)
[2024-07-19] MEDS: LASIX IVP ONE (09:55)
[2024-07-19] MEDS: K-DUR TAB 20 MEQ PO SCH (09:57)
[2024-07-19] MEDS ORDERED: SENOKOT PO PRN (10:08)
[2024-07-19] MEDS: PERCOCET TAB 5/325 MG PO PRN (15:58)
[2024-07-19] MEDS: DULCOLAX SUPPOSITORY 10 MG RECTAL ONE (17:07)
[2024-07-19] MEDS: DULCOLAX SUPPOSITORY 10 MG ONE (17:47)
--- NOTE | 2024-07-20 08:00 | RAD ---
EXAM: CHEST, 1 VIEW HISTORY: SOB, HX; CHF, FLUID OVERLOAD; COMPARISON: 05/08/2024 FINDINGS: The cardiomediastinal silhouette is stable. No acute airspace disease. No pneumothorax or effusion. No acute osseous abnormality. IMPRESSION: No acute cardiopulmonary disease. THIS IS AN ELECTRONICALLY VERIFIED FINAL REPORT 07/20/2024 7:57 AM - Electronically signed by Emiliano Nieves MD
[2024-07-20 09:35] VITALS: RESP 20
[2024-07-20 12:15] VITALS: BP 177/70; PULSE 90; TEMP 98.5; O2SAT 98
== END 2024-07-20 12:59 | disposition swing bed (61) ==
LOC: ER 01:43 → MED/SURG 01:43 → UNDODISOB 07:48 → MED/SURG 07:49
PROVIDERS: ADMIT Internal Medicine; ATTEND Internal Medicine
DX: Z79.4 Long term (current) use of insulin; M54.2 Cervicalgia; W01.198A Fall on same level from slipping, tripping and stumbling with subsequent striking against other object, initial encounter; I10 Essential (primary) hypertension; R26.89 Other abnormalities of gait and mobility; E87.6 Hypokalemia; I50.9 Heart failure, unspecified; Z91.81 History of falling; I25.10 Atherosclerotic heart disease of native coronary artery without angina pectoris; K21.9 Gastro-esophageal reflux disease without esophagitis; Z87.39 Personal history of other diseases of the musculoskeletal system and connective tissue; R06.02 Shortness of breath; F41.8 Other specified anxiety disorders; E78.5 Hyperlipidemia, unspecified; E11.00 Type 2 diabetes mellitus with hyperosmolarity without nonketotic hyperglycemic-hyperosmolar coma (NKHHC); R53.1 Weakness; Z87.448 Personal history of other diseases of urinary system; E86.0 Dehydration; E11.65 Type 2 diabetes mellitus with hyperglycemia; Y92.89 Other specified places as the place of occurrence of the external cause; S51.811A Laceration without foreign body of right forearm, initial encounter; E87.0 Hyperosmolality and hypernatremia; R94.31 Abnormal electrocardiogram [ECG] [EKG]; S00.83XA Contusion of other part of head, initial encounter; S42.215A Unspecified nondisplaced fracture of surgical neck of left humerus, initial encounter for closed fracture

== ENCOUNTER 2024-07-20 13:00 | Inpatient (IN) ==
[2024-07-20] MEDS ORDERED: NovoLIN R (or HumuLIN R) SUBCUT PRN (14:20)
[2024-07-20] MEDS ORDERED: NITROSTAT SL PRN (14:20)
[2024-07-20] MEDS: NEURONTIN CAP 400 MG PO SCH (15:22)
[2024-07-20] MEDS: LINZESS PO ONE (15:22)
[2024-07-20] MEDS: ATARAX TAB 25 MG PO SCH (15:22)
[2024-07-20] MEDS: NovoLIN R (or HumuLIN R) SUBCUT PRN (15:54)
[2024-07-20] MEDS: ZANAFLEX PO SCH (16:00)
--- NOTE | 2024-07-20 18:16 | DR.UPDATE ---
H&P UPDATE Review Yes Any changes to H&P?: No Patient was examined?: Yes
--- NOTE | 2024-07-20 18:53 | PT/OTEVAL ---
PT/OT OBJECTIVES - HISTORY Prescription: PT Consult Diagnosis: L Humeral Fracture s/p Fall Precautions: Fall Risk, NWB LUE in Sling PMH: Anxiety, Arthritis, Coronary Artery Disease, CVA, Depression, Diabetes, Dyslipidemia, GERD, Hypertension, [place], Appendectomy, Cholecystectomy and Hysterectomy Prior Level of Function: Assistance Required Other: Per pt report- she lives alone in a single story home with no steps to enter. PLOF: Pt reports being independent with mobility tasks and stays in her house using rollator. Has an aide daily for 4 hours (states it could be increased if needed) who assists with household tasks and ADLs as needed. DME: Rollator, Walk in Shower, Powerchair and O2 History of Present Illness: Pt is a 73 year old female who was initially admit abby to [facility] on 07/18/2024 after a fall at home resulting in L humeral fracture. Ortho was consulted and deemed fracture non-surgical at this time and pt to wear a sling and be NWB. Pt noted with decline in strength and mobility from PLOF and was transitioned to swing bed program on the afternoon of 07/20/2024. - COGNITION Mental Status: Alert, Oriented, Name, Date, Place, Purpose Communication Status: Verbal Ability to Follow Directions: 2 Step - PAIN Left Shoulder Pain Scale: Moderate Comments: "It just hurts all of the time" Generalized Pain Scale: Discomfort Comments: "Every joint in my body hurts" - BED MOBILITY Rolling: Minimal - TRANSFERS Supine to Sit: Minimal Sit to Stand: Minimal Sit or Stand Pivot: Minimal Safety Comment: NWB LUE & shoulder to be in sling/immobilized Safety (requires cues for:): Weight Bearing Precaution, Shoulder Precautions - BALANCE Static Sitting: Good Standing: Poor Balance Comment: Poor+ Dynamic Sitting: Good Standing: Poor Balance Comment: Poor- - NEUROMOTOR/SENSATION Yayo. Lower Ext Sensation: WFL Coordination: WFL Proprioception: WFL - HAND DOMINANCE Extremity Function: Hand Dominance: Right - ROM Bilateral LE ROM: WFL Muscle Tone: WFL - STRENGTH Bilateral LE Strength Number: 3 Other comment: 3+/5 - GAIT Pt. ambulates how many feet?: 100 Amount of Assistance Required: Minimal Comments: Hand held assist - TREATMENT Date: 07/20/24 Time: 16:00 Treatment Type: Evaluation Treatment Provided: Therapeutic Excersises - TOTAL TREATMENT TIME Total Time: 75 - POST ASSESSMENT Post Assessment Comment: Pt was found supine in bed in room and agreeable to participation in PT services. Clarified history and PLOF information from acute care evaluation. Reviewed NWB status and immobilization of L shoulder. Pt required min assist for bed mobility tasks, functional transfers and gait tasks with INDUSTRI[employer] MANAGEMENT TEACHER. Pt noted to easily fatigue. Pt not willing to stay OOB and wanting to be in bed using Purewick- extensive education provided on need to get OOB and use bedside commode or bathroom to facilitate increased strength and facilitate highest level of function. Pt stated she understood but wants to continue the Purewick. Pt was then agreeable to supine exercises to all joints in all planes with focus on full available ROM and proper technique (2 x 10 of each). Pt was left supine in bed in room with all needs met. Pt would benefit from continued participation in PT services to address deficits and facilitate highest level of function and safe discharge planning. - EXIT DISPOSITION Exit Position: BED Call light in reach: Yes Bed Alarm On: YES PT/OT ASSESSMENT - PT Problem List: Decreased Bed Mobility, Decreased Transfers, Decreased Gait, Decreased Balance, Decreased LE Strength - PT GOALS Short Term Goals Days: 10 Mobility: Pt will perform bed mobility tasks with supervision Transfers: Pt will perform functional transfers with supervision Gait: Pt will ambulate 200ft with SPC and touch assist Balance: Pt will increase static standing balance to good Jail Goals Days: 20 Mobility: Pt will perform bed mobility tasks with mod I Transfers: Pt will perform functional transfers with mod I Gait: Pt will ambulate 400ft with SPC and mod I Balance: Pt will increase dynamic standing balance to fair ROM/Strength: Pt will increase BLE strength to 5/5 - PATIENT GOALS Patient/Family Goals: "I want to go home and be with my dog" Goals Discussed with Patient/Family: Yes Rehabilitation Potential: Good to meet stated goals Justification for Potential: Facilitate highest level of function and safe discharge planning Weakness and Barriers: Decreased Participation - PLAN Suggested Treatment Plan: Bed Mobility Training, Therapeutic Activity, Gait Training, Neuro Re-education, Therapeutic Ex with HEP, Patient Education, Family Education, Other Other comment: Manual Therapy - FREQUENCY AND DURATION PT: 5-6x per week x 20 days Expected Continuation of Care at Discharge: Home Health Anticipated Equipment Needs: TBD pending progress with therapy
[2024-07-20 19:23] VITALS: BMI 26.1
--- NOTE | 2024-07-20 19:43 | PT/OTEVAL ---
PT/OT OBJECTIVES - HISTORY Prescription: OT Consult Diagnosis: L Humeral Fracture s/p Fall Precautions: Fall Risk, NWB LUE in Sling PMH: Anxiety, Arthritis, Coronary Artery Disease, CVA, Depression, Diabetes, Dyslipidemia, GERD, Hypertension, [place], Appendectomy, Cholecystectomy and Hysterectomy Prior Level of Function: Assistance Required Other: Per pt report- she lives alone in a single story home with no steps to enter. PLOF: Pt reports needing A with ADLs and IADLs. Has an aide daily for 4 hours (states it could be increased if needed) who assists with household tasks and ADLs as needed. DME: Rollator, Walk in Shower, Powerchair and O2 History of Present Illness: Pt is a 73 year old female who was initially admitted to [facility] on 07/18/2024 after a fall at home resulting in L humeral fracture. Ortho was consulted and deemed fracture non-surgical at this time and pt to wear a sling and be NWB. Pt noted with decline in strength and mobility from PLOF and was transitioned to swing bed program on the afternoon of 07/20/2024. - COGNITION Mental Status: Alert, Oriented, Name, Date, Place, Purpose Communication Status: Verbal Ability to Follow Directions: 2 Step - PAIN Generalized Pain Scale: Discomfort Comments: "Every joint in my body hurts" Left Shoulder Pain Scale: Moderate Comments: "It just hurts all of the time" - BED MOBILITY Rolling: Minimal - TRANSFERS Supine to Sit: Minimal Sit to Stand: Minimal Sit or Stand Pivot: Minimal Safety Comment: NWB LUE & shoulder to be in sling/immobilized Safety (requires cues for:): Weight Bearing Precaution, Shoulder Precautions - ADL'S Upper Body ADL: Maximum Lower Body ADL: Maximum Toileting: Maximum Bathing: Maximum Hygeine: Maximum - BALANCE Static Sitting: Good Standing: Poor Balance Comment: Poor+ Dynamic Sitting: Good Standing: Poor Balance Comment: Poor- - NEUROMOTOR/SENSATION Yayo. Lower Ext Sensation: WFL Coordination: WFL Proprioception: WFL Yayo. Upper Ext Sensation: WFL Coordination: WFL - ROM Left UE ROM: Impaired Right UE ROM: WFL - STRENGTH Bilateral LE Strength Number: 3 Other comment: 3+/5 Left UE Strength Number: 0 Other comment: N/a due to being in a sling Right UE Strength Number: 3 - TREATMENT Date: 07/20/24 Time: 16:00 Treatment Type: Evaluation Treatment Provided: Therapeutic Excersises - TOTAL TREATMENT TIME Total Time: 75 - POST ASSESSMENT Post Assessment Comment: Pt was seen for skilled OT to assess CLOF. Pt was not feeling well however agreeable to complete RUE ROM. 15 reps x2 in all planes. Pt given time for task. Pt stated that she was hurting all over and couldnt get up and move around. Pt educated on getting up and using the BSC. Pt had all needs met and call light within reach. Pt agreeable to getting up and dressing tomorrow. Pt demonstrate deficits with ADLs and ADL functional mobility. Pt would benefit from skilled OT services to address ADL deficits to facilitate highest level of ADL function needed for safe d/c planning. - EXIT DISPOSITION Exit Position: BED Call light in reach: Yes PT/OT ASSESSMENT - OT Problem List: Decreased Mobility ADL's, Decreased Safety Aware, Decreased Dressing, Decreased Bathing, Decreased Grooming, Decreased UE Strength - PT GOALS Short Term Goals Days: 10 Mobility: Pt will perform bed mobility tasks with supervision Transfers: Pt will perform functional transfers with supervision Gait: Pt will ambulate 200ft with SPC and touch assist Balance: Pt will increase static standing balance to good Correction Goals Days: 20 Mobility: Pt will perform bed mobility tasks with mod I Transfers: Pt will perform functional transfers with mod I Gait: Pt will ambulate 400ft with SPC and mod I Balance: Pt will increase dynamic standing balance to fair ROM/Strength: Pt will increase BLE strength to 5/5 - OT GOALS Correction Goals Days: 20 Mobility for ADL's: Pt to improve functional ADL transfers with LRAD and supv A Safety Awareness: Pt to improve safety to G Dressing: Pt to improve LB dressing to supv A Bathing: Pt to improve overall bathing touch A Upper Ext. Strength/Use: Pt to improve MMT in UE by 1 grade Other: Pt to improve FAT to F+ Short Term Goals Days: 10 Mobility for ADL's: Pt to improve functional ADL transfers with LRAD and min A Safety Awareness: Pt to improve safety to F+ Dressing: Pt to improve UB dressing to supv A Bathing: Pt to improve overall bathing min A Other: Pt to improve FAT to G - PATIENT GOALS Patient/Family Goals: I want to see my dog Rehabilitation Potential: Fair to meet stated goals-depending on participation Justification for Potential: To facilitate highest level of ADL function needed for safe d/c planning Weakness and Barriers: Pain - PLAN Suggested Treatment Plan: Therapeutic Activity, Self Care Training, Neuro Re- education, Therapeutic Ex with HEP, Home Management - FREQUENCY AND DURATION OT: 5x a week x 20 days Expected Continuation of Care at Discharge: Home Health
[2024-07-20] MEDS ORDERED: SNACK - Diabetic Appropriate PO SCH (20:00)
[2024-07-20] MEDS: PERCOCET TAB 5/325 MG PO PRN (20:51)
[2024-07-20] MEDS: COLACE CAP 100 MG PO SCH (20:51)
[2024-07-20] MEDS: PEPCID TAB 20 MG PO SCH (20:52)
[2024-07-20] MEDS: ANTIVERT TAB 25 MG PO PRN (20:52)
[2024-07-20] MEDS: DESYREL PO SCH (20:52)
[2024-07-20] MEDS: BUSPAR PO SCH (20:53)
[2024-07-20] MEDS: NYSTATIN CREAM TOP SCH (20:56)
[2024-07-20] MEDS: SNACK - Diabetic Appropriate PO SCH (20:57)
[2024-07-20] MEDS ORDERED: [UNRECOGNIZED DRUG - REMARK] PO SCH (21:00)
[2024-07-20] MEDS: CATAPRES TAB 0.1 MG PO SCH (22:53)
[2024-07-21 06:42] LABS: ALANINE AMINOTRANSFERASE 124 Units/L (12-78); ALBUMIN 2.4 g/dL (3.4-5.0); ALKALINE PHOSPHATASE 229 Units/L (46-116); ASPARTATE AMINO TRANSFERASE 166 Units/L (15-37); BLOOD UREA NITROGEN 12 mg/dL (7-18); CALCIUM 9.4 mg/dL (8.5-10.1); CARBON DIOXIDE 27.7 mmol/L (21-32); CHLORIDE 104 mmol/L (98-107); COR CA(FOR HYPOALB) 10.7 mg/dL (8.5-10.1); COR NA(FOR HYPERGLY) 142 mmol/L (136-145); CREATININE 1.09 mg/dL (0.55-1.02); GLUCOSE 226 mg/dL (65-99); POTASSIUM 4.5 mmol/L (3.5-5.1); SODIUM 139 mmol/L (136-145); TOTAL PROTEIN 6.1 g/dL (6.4-8.2); eGFR NON BLACK RACES 52 (>60)
[2024-07-21 08:58] LABS: BASOPHILS % (AUTO) 0.7 % (0.2-1.0); EOSINOPHILS # (AUTO) 0.3 x10^3/uL (0.0-0.2); EOSINOPHILS % (AUTO) 5.1 % (0.9-2.9); HEMATOCRIT 33.5 % (36.0-47.0); HEMOGLOBIN 11.2 g/dL (12.0-16.0); LYMPHOCYTES # (AUTO) 1.1 X10^3/uL (1.3-2.9); LYMPHOCYTES % (AUTO) 17.9 % (21.0-51.0); MEAN CORPUSCULAR HEMOGLOBIN 28.1 pg (27.0-34.0); MEAN CORPUSCULAR HGB CONC 33.5 g/dL (33.0-35.0); MEAN CORPUSCULAR VOLUME 83.9 fL (80.0-100.0); MEAN PLATELET VOLUME 9.9 fL (7.4-11.0); MONOCYTES # (AUTO) 0.4 x10^3/uL (0.3-0.8); NEUTROPHILS # (AUTO) 4.5 x10^3/uL (2.2-4.8); NEUTROPHILS % (AUTO) 70.3 % (42.0-75.0); PLATELET COUNT 214 X10^3/uL (150.0-450.0); RED BLOOD COUNT 3.99 X10^6/uL (3.5-5.4); WHITE BLOOD COUNT 6.4 X10^3/uL (3.6-10.0)
[2024-07-21] MEDS: FLONASE NASAL SPRAY ENOSTRIL SCH (10:04)
[2024-07-21] MEDS: KLOR-CON 10 MEQ TAB PO SCH (10:06)
[2024-07-21] MEDS: LASIX PO SCH (10:06)
[2024-07-21] MEDS: PLAQUENIL PO SCH (10:06)
[2024-07-21] MEDS: WELLBUTRIN XL 150 MG (DAILY) PO SCH (10:06)
[2024-07-21] MEDS: FARXIGA PO SCH (10:06)
[2024-07-21] MEDS: ASPIRIN 81 MG CHEWTAB PO SCH (10:07)
[2024-07-21] MEDS: CYMBALTA PO SCH (10:07)
[2024-07-21] MEDS: PROTONIX TAB 40 MG PO SCH (10:07)
[2024-07-21] MEDS: TOPROL XL PO SCH (10:07)
[2024-07-21] MEDS: TRICOR TAB 145 MG PO SCH (10:07)
[2024-07-21] MEDS: LOVENOX INJ 30 MG SYR SC SCH (10:08)
[2024-07-21] MEDS: CARIPRAZINE 1.5 MG PO SCH (10:09)
[2024-07-22] MEDS: SENOKOT PO PRN (08:32)
--- NOTE | 2024-07-22 10:55 | PCM.PROG ---
Progress Note Progress Note for Day of Date of Exam: 07/22/24 Subjective Subjective: Patient at bedside, no acute events overnight. She is currently admitted to swing bed status for left humerus fracture. She has been working with physical therapy. She states her pain has not been well-controlled as she was taking a higher dose at home. She is currently on Percocet every 4 as needed. Labs/imaging reviewed Plan: Continue current medications. Will add tramadol as needed. Continue to work with physical therapy as tolerated. Past Medical Family Social History Allergies: Allergies No Known Drug Allergies Allergy (Verified 07/11/24 10:35) Vital Signs and I&O's Vital Signs: Vital Signs Temperature 97.6 F Pulse Rate [Apical] 80 Respiratory Rate 20 Respiratory Rate 18 Respiratory Rate 18 Respiratory Rate 19 Respiratory Rate 20 Blood Pressure [Right Arm] 140/61 O2 Sat by Pulse Oximetry 98 Intake and Output: Intake & Output 07/19/24 07/20/24 07/21/24 07/22/24 23:59 23:59 23:59 23:59 Intake Total 787 / 787 1860 / 1860 240 / 240 Output Total 1051 / 1051 190 / 190 Balance 787 / 787 809 / 809 50 / 50 Physical Exam Oriented: Normal Respiratory: Normal Cardiovascular: Normal Auscultation: Bowel Sounds: Normal Tenderness: Normal Skin: Normal Musculoskeletal: Left and Arm Psychiatric: Normal Mood Description: Calm Affect: Normal Speech Pattern: Clear and Appropriate Laboratory and Diagnostics 07/21/24 08:50 07/21/24 05:50 Labs: Laboratory WBC 6.4 X10^3/uL (3.6-10.0) 07/21/24 08:50 RBC 3.99 X10^6/uL (3.5-5.4) 07/21/24 08:50 Hgb 11.2 g/dL (12.0-16.0) L 07/21/24 08:50 Hct 33.5 % (36.0-47.0) L 07/21/24 08:50 MCV 83.9 fL (80.0-100.0) 07/21/24 08:50 MCH 28.1 pg (27.0-34.0) 07/21/24 08:50 MCHC 33.5 g/dL (33.0-35.0) 07/21/24 08:50 RDW 15.0 % (11.6-16.5) 07/21/24 08:50 Plt Count 214 X10^3/uL (150.0-450.0) 07/21/24 08:50 MPV 9.9 fL (7.4-11.0) 07/21/24 08:50 Neut % (Auto) 70.3 % (42.0-75.0) 07/21/24 08:50 Lymph % (Auto) 17.9 % (21.0-51.0) L 07/21/24 08:50 Falls % (Auto) 6.0 % (0.0-13.0) 07/21/24 08:50 Eos % (Auto) 5.1 % (0.9-2.9) H 07/21/24 08:50 Baso % (Auto) 0.7 % (0.2-1.0) 07/21/24 08:50 Neut # (Auto) 4.5 x10^3/uL (2.2-4.8) 07/21/24 08:50 Lymph # (Auto) 1.1 X10^3/uL (1.3-2.9) L 07/21/24 08:50 Falls # (Auto) 0.4 x10^3/uL (0.3-0.8) 07/21/24 08:50 Eos # (Auto) 0.3 x10^3/uL (0.0-0.2) H 07/21/24 08:50 Baso # (Auto) 0.0 X10^3/uL (0.0-0.1) 07/21/24 08:50 Absolute Nucleated RBC 0.0 /100WBC 07/21/24 08:50 Sodium 139 mmol/L (136-145) 07/21/24 05:50 Corrected Sodium 142 mmol/L (136-145) 07/21/24 05:50 Potassium 4.5 mmol/L (3.5-5.1) 07/21/24 05:50 Chloride 104 mmol/L (98-107) 07/21/24 05:50 Carbon Dioxide 27.7 mmol/L (21-32) 07/21/24 05:50 BUN 12 mg/dL (7-18) 07/21/24 05:50 Creatinine 1.09 mg/dL (0.55-1.02) H 07/21/24 05:50 Est GFR (MDRD) Af Amer > 60 (>60) 07/21/24 05:50 Est GFR (MDRD) Non-Af 52 (>60) L 07/21/24 05:50 Glucose 226 mg/dL (65-99) H 07/21/24 05:50 Calcium 9.4 mg/dL (8.5-10.1) 07/21/24 05:50 Corrected Calcium 10.7 mg/dL (8.5-10.1) H 07/21/24 05:50 Total Bilirubin 0.60 mg/dL (0.2-1.0) 07/21/24 05:50 AST 166 Units/L (15-37) H 07/21/24 05:50 ALT 124 Units/L (12-78) H 07/21/24 05:50 Alkaline Phosphatase 229 Units/L (46-116) H 07/21/24 05:50 Total Protein 6.1 g/dL (6.4-8.2) L 07/21/24 05:50 Albumin 2.4 g/dL (3.4-5.0) L 07/21/24 05:50 Globulin 3.7 g/dL (2.5-4.5) 07/21/24 05:50 Albumin/Globulin Ratio 0.6 Ratio (1.1-2.1) L 07/21/24 05:50 Plan (1) Shoulder fracture, left: Status: Acute Qualifiers: Encounter type: initial encounter Fracture type: closed Qualified Code(s): S42.92XA - Fracture of left shoulder girdle, part unspecified, initial encounter for closed fracture (2) Fall: Status: Acute Qualifiers: Encounter type: initial encounter Qualified Code(s): W19.XXXA - Unspecified fall, initial encounter (3) CHF (congestive heart failure): Status: Chronic (4) Hyperlipidemia: Status: Chronic (5) Hyponatremia: Status: Acute
[2024-07-22] MEDS: ZyrTEC TAB 10 MG PO SCH (12:42)
[2024-07-22] MEDS: ULTRAM PO PRN (14:45)
[2024-07-24 06:19] LABS: BASOPHILS % (AUTO) 0.6 % (0.2-1.0); HEMATOCRIT 36.4 % (36.0-47.0); LYMPHOCYTES # (AUTO) 1.3 X10^3/uL (1.3-2.9); MONOCYTES # (AUTO) 0.6 x10^3/uL (0.3-0.8)
[2024-07-24 06:22] LABS: EOSINOPHILS # (AUTO) 0.4 x10^3/uL (0.0-0.2); EOSINOPHILS % (AUTO) 5.8 % (0.9-2.9); HEMOGLOBIN 12.3 g/dL (12.0-16.0); LYMPHOCYTES % (AUTO) 21.3 % (21.0-51.0); MEAN CORPUSCULAR HEMOGLOBIN 28.2 pg (27.0-34.0); MEAN CORPUSCULAR HGB CONC 33.7 g/dL (33.0-35.0); MEAN CORPUSCULAR VOLUME 83.5 fL (80.0-100.0); MEAN PLATELET VOLUME 9.8 fL (7.4-11.0); MONOCYTES % (AUTO) 9.3 % (0.0-13.0); NEUTROPHILS # (AUTO) 3.8 x10^3/uL (2.2-4.8); PLATELET COUNT 249 X10^3/uL (150.0-450.0); RED BLOOD COUNT 4.36 X10^6/uL (3.5-5.4); RED CELL DISTRIBUTION WIDTH 15.9 % (11.6-16.5)
[2024-07-24 06:40] LABS: ALBUMIN 2.8 g/dL (3.4-5.0); CALCIUM 9.8 mg/dL (8.5-10.1); CARBON DIOXIDE 29.6 mmol/L (21-32); COR CA(FOR HYPOALB) 10.8 mg/dL (8.5-10.1); CREATININE 1.41 mg/dL (0.55-1.02); MAGNESIUM 1.9 mg/dL (2.0-2.9); POTASSIUM 3.5 mmol/L (3.5-5.1); TOTAL PROTEIN 7.2 g/dL (6.4-8.2)
[2024-07-24] MEDS ORDERED: CONSULT PHARMACY - POTASSIUM & MAGNESIUM XX SCH (08:00)
[2024-07-24] MEDS: MAG-OX TAB PO SCH (09:54)
[2024-07-24] MEDS: K-DUR TAB 20 MEQ PO SCH (10:00)
[2024-07-25 03:18] VITALS: RESP 16
[2024-07-25 10:29] VITALS: BP 139/60; PULSE 69; TEMP 98.3; O2SAT 97
== END 2024-07-25 11:00 | disposition home health service (06) | DRG 562 ==
LOC: MED/SURG 13:00
PROVIDERS: ADMIT Internal Medicine; ATTEND Internal Medicine

== ENCOUNTER 2024-10-12 12:04 | Observation (INO) ==
[2024-10-12 12:36] LABS: MEAN PLATELET VOLUME 10.7 fL (7.4-11.0); RED CELL DISTRIBUTION WIDTH 15.0 % (11.6-16.5)
[2024-10-12 12:56] LABS: COR CA(FOR HYPOALB) 10.6 mg/dL (8.5-10.1); COR NA(FOR HYPERGLY) 134.0 mmol/L (136-145); CREATININE 1.34 mg/dL (0.55-1.02); eGFR NON BLACK RACES 41.0 (>60)
[2024-10-12] MEDS: NS 500 ML IV 500 ML IV ONE ×2 (13:04→18:16)
[2024-10-12] MEDS: NovoLIN R (or HumuLIN R) SUBCUT ONE (13:19)
[2024-10-12] MEDS: NS 1,000 ML IV 1,000 ML IV ONE (15:06)
[2024-10-12] MEDS: NovoLIN R (or HumuLIN R) IV ONE (15:22)
--- NOTE | 2024-10-12 16:49 | DR.GENAD ---
HPI Time Seen Time Seen by Provider: 10/12/24 12:39 PCP Primary Care Physician: KOMAL White HPI Comment HPI Comment: Patient with complaint of generalized weakness over the last 3 days. Patient was admitted over a week ago and states she improved but then 3 days ago she started feeling weak and not well in general. Patient states she has been struggling taking care of herself at home. Patient is using insulin at home but states she has not been able to control her sugar. From our discussion it sounds like she has not been following a good diabetic diet or maybe her medications need to be modified by her primary care doctor versus she may not be using her medications properly. She was alert and oriented x 3 and she did not have any focal weakness, dizziness, paresthesias or any other signs of CVA. Complaint/Symptoms Chief Complaint:: Patient c/o generalized weakness x3 days. COVID-19 Coronavirus risk:travel/contact w/high risk person: No Has patient experienced Coronavirus symptoms: No Source History Provided: Patient Mode of Arrival Mode of Arrival: EMS Timing Onset of Chief Complaint: 10/10/24 PMH PMH Past Medical History: Yes Past Medical History: Anxiety, Arthritis, Coronary Artery Disease, CVA, Depression, Diabetes, Dyslipidemia, GERD, Hypertension and NV Past Surgical History: Yes Surgical History: Appendectomy, Cholecystectomy, Hysterectomy and Tonsillectomy Family History History of Family Medical Conditions: Yes Family Medical History: Diabetes Mellitus, NV, Coronary Artery Disease, Sudden Cardiac and Hypertension Social History Type of Tobacco Use: None Alcohol Use: None Do you use any recreational Drugs:: No Lives With: Alone Lives Where: Home Travel Risk Coronavirus risk:travel/contact w/high risk person: No Has patient experienced Coronavirus symptoms: No Infectious screening Have you traveled outside the country in the last 6 months?: No Isolation: Standard ROS Review of Systems Constitutional: See HPI and Weakness; negative Fever Eyes: No Symptoms Reported ENTM: No Symptoms Reported Respiratoy: No Symptoms Reported Cardiovascular: No Symptoms Reported Gastrointestinal/Abdominal: No Symptoms Reported Genitourinary: No Symptoms Reported Neurological: No Symptoms Reported Musculoskeletal: No Symptoms Reported Integumentary: No Symptoms Reported Hematologic/Lymphatic: No Symptoms Reported Endocrine: See HPI Psychiatric: No Symptoms Reported All Other Systems: Reviewed and Negative PE Vital Signs Vitals: Vital Signs Temperature 98.4 F Pulse Rate 98 Pulse Rate 97 Pulse Rate 97 Pulse Rate 96 Pulse Rate 105 Pulse Rate 103 Pulse Rate 104 Pulse Rate 105 Pulse Rate 107 Pulse Rate 107 Pulse Rate 107 Pulse Rate 108 Respiratory Rate 26 Respiratory Rate 26 Respiratory Rate 27 Respiratory Rate 31 Respiratory Rate 31 Respiratory Rate 29 Respiratory Rate 24 Respiratory Rate 26 Respiratory Rate 30 Respiratory Rate 20 Blood Pressure 152/67 Blood Pressure 147/66 Blood Pressure 146/64 Blood Pressure 135/62 O2 Sat by Pulse Oximetry 96 O2 Sat by Pulse Oximetry 99 O2 Sat by Pulse Oximetry 98 O2 Sat by Pulse Oximetry 98 O2 Sat by Pulse Oximetry 99 O2 Sat by Pulse Oximetry 98 O2 Sat by Pulse Oximetry 99 O2 Sat by Pulse Oximetry 98 General Limitations: No Limitations General Appearance: Alert and In No Apparent Distress Head Head Exam: Normal Inspection Eyes Eye exam: Normal Appearance ENT ENT Exam: Normal Exam External Ear Exam: Normal External Inspection TM/Canal Exam: Bilateral: Normal Nose Exam: Normal Nose Exam Mouth Exam: Normal Inspection Throat Exam: Normal Inspection Neck Neck Exam: Normal Inspection Chest Chest Inspection: Normal Inspection Respiratory Respiratory Exam: Normal Lung Sounds Bilat Respiratory Exam: Bilateral: Clear to Auscultation Cardiovascular Cardiovascular Exam: Regular Rate and Normal Rhythm Abdominal Exam Abdominal Exam: Normal Inspection, Normal Bowel Sounds and Soft Extremities Extremities Exam: Normal Inspection Back Back Exam: Normal Inspection Neurologic Neurological Exam: Alert, Oriented X3, CN II-XII Intact and Reflexes Normal; negative Motor Sensory Deficit Psychiatric Psychiatric Exam: Normal Affect and Normal Mood Skin Skin Exam: Warm, Dry, Intact and Normal Color COURSE Treatment Treatment: Discussed results of findings and workup with patient. Critical Care Notes Total Time (mins): 37 Critical Diagnosis: Diabetic ketoacidosis versus hyperosmolar hyperglycemic state versus hyperglycemia, failure to thrive Critical Interventions: IV fluids and insulin used as well as close monitoring until significant improvement with glucose. Time spent coordinating with other providers. ROR Labs Reviewed Laboratory Results Reviewed?: Yes 10/12/24 12:18 10/12/24 12:18 Laboratory: WBC 8.9 X10^3/uL (3.6-10.0) 10/12/24 12:18 RBC 4.70 X10^6/uL (3.5-5.4) 10/12/24 12:18 Hgb 13.4 g/dL (12.0-16.0) 10/12/24 12:18 Hct 39.9 % (36.0-47.0) 10/12/24 12:18 MCV 84.9 fL (80.0-100.0) 10/12/24 12:18 MCH 28.5 pg (27.0-34.0) 10/12/24 12:18 MCHC 33.5 g/dL (33.0-35.0) 10/12/24 12:18 RDW 15.0 % (11.6-16.5) 10/12/24 12:18 Plt Count 183 X10^3/uL (150.0-450.0) 10/12/24 12:18 MPV 10.7 fL (7.4-11.0) 10/12/24 12:18 Neut % (Auto) 86.6 % (42.0-75.0) H 10/12/24 12:18 Lymph % (Auto) 5.1 % (21.0-51.0) L 10/12/24 12:18 [place] % (Auto) 8.0 % (0.0-13.0) 10/12/24 12:18 Eos % (Auto) 0.1 % (0.9-2.9) L 10/12/24 12:18 Baso % (Auto) 0.2 % (0.2-1.0) 10/12/24 12:18 Neut # (Auto) 7.7 x10^3/uL (2.2-4.8) H 10/12/24 12:18 Lymph # (Auto) 0.5 X10^3/uL (1.3-2.9) L 10/12/24 12:18 [place] # (Auto) 0.7 x10^3/uL (0.3-0.8) 10/12/24 12:18 Eos # (Auto) 0.0 x10^3/uL (0.0-0.2) 10/12/24 12:18 Baso # (Auto) 0.0 X10^3/uL (0.0-0.1) 10/12/24 12:18 Absolute Nucleated RBC 0.1 /100WBC 10/12/24 12:18 Sodium 124 mmol/L (136-145) L* 10/12/24 12:18 Corrected Sodium 134 mmol/L (136-145) L 10/12/24 12:18 Potassium 4.6 mmol/L (3.5-5.1) 10/12/24 12:18 Chloride 85 mmol/L (98-107) L 10/12/24 12:18 Carbon Dioxide 18.9 mmol/L (21-32) L 10/12/24 12:18 BUN 22 mg/dL (7-18) H 10/12/24 12:18 Creatinine 1.34 mg/dL (0.55-1.02) H 10/12/24 12:18 Est GFR (MDRD) Af Amer 50 (>60) L 10/12/24 12:18 Est GFR (MDRD) Non-Af 41 (>60) L 10/12/24 12:18 Glucose 531 mg/dL (65-99) H* 10/12/24 12:18 POC Glucose (mg/dL) 310 mg/dL (65-99) H 10/12/24 16:43 Calcium 9.6 mg/dL (8.5-10.1) 10/12/24 12:18 Corrected Calcium 10.6 mg/dL (8.5-10.1) H 10/12/24 12:18 Magnesium 2.0 mg/dL (2.0-2.9) 10/12/24 12:17 Total Bilirubin 0.70 mg/dL (0.2-1.0) 10/12/24 12:18 AST 38 Units/L (15-37) H 10/12/24 12:18 ALT 57 Units/L (12-78) 10/12/24 12:18 Alkaline Phosphatase 199 Units/L (46-116) H 10/12/24 12:18 Troponin I High Sens 11.0 ng/L (4.0-60.0) 10/12/24 12:17 B-Natriuretic Peptide 42.5 pg/mL (0-79) 10/12/24 12:18 Total Protein 7.8 g/dL (6.4-8.2) 10/12/24 12:18 Albumin 2.8 g/dL (3.4-5.0) L 10/12/24 12:18 Globulin 5.0 g/dL (2.5-4.5) H 10/12/24 12:18 Albumin/Globulin Ratio 0.6 Ratio (1.1-2.1) L 10/12/24 12:18 Acetone, Semi-Quant Small (NEGATIVE) H 10/12/24 14:23 Opioid Opioid Risk Tool Age (David box if 16-45): No History of Preadolescent Sexual Abuse: No Total: 0 Total Score Risk Category: Low Risk Copyright: [place] LR predicting aberrant behaviors Discharge Plan Diagnosis Discharge Problem: Hyperosmolar hyperglycemic state (HHS), Adult failure to thrive Discharge Plan Patient Disposition: ADMITTED INPATIENT Condition: Stable Prescriptions: No Action fenofibrate nanocrystallized 145 mg tablet 145 mg PO QDAY Qty: 90 3RF furosemide [Lasix] 40 mg tablet 40 mg PO QAM Qty: 90 3RF Rx Instructions: pt states " i only take 20mg at hs " metoprolol succinate 50 mg tablet extended release 24 hr 50 mg PO QDAY Qty: 90 3RF potassium chloride 10 mEq capsule, extended release 10 meq PO QDAY Qty: 90 3RF bupropion HCl 150 mg tablet extended release 24 hr 150 mg PO QAM hydroxychloroquine 200 mg tablet 200 mg PO QDAY gabapentin 800 mg tablet 800 mg PO TID buspirone 7.5 mg tablet 7.5 mg PO BID famotidine 20 mg tablet 20 mg PO BID nitroglycerin 0.4 mg tablet, sublingual See Rx Instructions .ROUTE .COMPLEX PRN (Reason: Chest Pain) Rx Instructions: 0.4 mg sublingually every 5 minutes up to 3 doses as needed for chest pain. if no relief go to emergency room clonidine HCl 0.1 mg tablet 0.1 mg PO BID Rx Instructions: pt states i dont take any more trazodone 100 mg tablet 100 mg PO QPM dapagliflozin propanediol [Farxiga] 10 mg tablet 10 mg PO QDAY duloxetine 60 mg capsule,delayed release(DR/EC) 60 mg PO QDAY Vraylar 1.5 mg capsule 1.5 mg PO QDAY Ozempic 0.25 mg or 0.5 mg (2 mg/3 mL) pen injector 2 mg SUBCUT QWEEK Patient Comments: [NO ORIGINAL SIG] Rx Instructions: pt takes on fridays Humulin R Regular U-100 Insuln 100 unit/mL solution See Rx Instructions .ROUTE .COMPLEX PRN Patient Comments: [NO ORIGINAL SIG] Rx Instructions: SLIDING SCALE pantoprazole 40 mg tablet,delayed release (DR/EC) 40 mg PO DAILY nystatin 100,000 unit/gram cream 1 applic topical BID hydroxyzine HCl 25 mg tablet 25 mg PO TID fluticasone propionate 50 mcg/actuation spray,suspension 1 spray INTRANASAL DAILY Patient Comments: [NO ORIGINAL SIG] tizanidine 4 mg Capsule 4 mg PO QID Xtampza ER 9 mg Cap,Sprinkl,Er12hr(Dont Crush) 9 mg PO BID Rx Instructions: must administer with a meal/food pravastatin 40 mg tablet 40 mg PO DAILY (DME) blood-glucose meter [Glucocom Blood Glucose] Kit Qty: 1 0RF Rx Instructions: As Directed aspirin 81 mg Tablet,Chewable 81 mg PO QDAY Qty: 30 0RF docusate sodium [Colace] 100 mg Capsule 100 mg PO QDAY Qty: 30 0RF latanoprost 0.005 % drops OPHTHALMIC (EYE) Patient Comments: [NO ORIGINAL SIG] tramadol 50 mg tablet 50 mg PO BID PRN Health Concerns: Post Hospitalization: new medications and changes needed to prevent readmission or further decline. Pt educated and given instructions on all concerns. Plan of Treatment: Continue with present treatment and follow up plan. Pt is to keep follow up appointment as instructed and take medications as ordered. Orders to Discharge Patient Discharge Orders: Transfer (Routine); Ordered 10/12/24 Ordered By: Ruben Easley Follow ups/Referrals Follow ups/Referrals: LUIS MAST [Primary Care Provider, MEDICAL] - 3 days Instructions Stand Alone Forms: Find Help Web Site, Post Hospital Follow Up Care Print Language: MONGOLIAN
[2024-10-12 17:21] LABS: COR NA(FOR HYPERGLY) 136 mmol/L (136-145); CREATININE 1.03 mg/dL (0.55-1.02); eGFR NON BLACK RACES 56 (>60)
[2024-10-12] MEDS ORDERED: TYLENOL 325 MG TAB PO PRN (18:13)
[2024-10-12] MEDS ORDERED: MORPHINE SULFATE INJ 2 MG INJ IVP PRN (18:13)
[2024-10-12] MEDS ORDERED: ZOFRAN INJ 4 MG VIAL IVP PRN (18:13)
[2024-10-12] MEDS ORDERED: ULTRAM PO PRN (18:13)
[2024-10-12] MEDS: NS 1,000 ML IV 1,000 ML ONE (18:15)
[2024-10-12] MEDS: NovoLIN R (or HumuLIN R) ONE (18:16)
[2024-10-12 18:33] VITALS: BMI 24.5
[2024-10-12] MEDS: NS 1,000 ML IV 1,000 ML IV SCH (19:32)
[2024-10-12] MEDS: K-DUR TAB 20 MEQ PO ONE (19:32)
[2024-10-12] MEDS: CONSULT PHARMACY - POTASSIUM & MAGNESIUM XX SCH (20:30)
[2024-10-12] MEDS: BUSPIRONE 7.5 MG PO SCH (20:51)
[2024-10-12] MEDS: NovoLIN R (or HumuLIN R) SUBCUT PRN (21:16)
[2024-10-12] MEDS: NEURONTIN CAP 400 MG PO SCH (21:16)
[2024-10-12] MEDS: SNACK - Diabetic Appropriate PO SCH (22:38)
[2024-10-13 06:28] LABS: MEAN PLATELET VOLUME 10.8 fL (7.4-11.0); RED CELL DISTRIBUTION WIDTH 14.8 % (11.6-16.5)
[2024-10-13 06:55] LABS: COR CA(FOR HYPOALB) 10.2 mg/dL (8.5-10.1); COR NA(FOR HYPERGLY) 137 mmol/L (136-145); CREATININE 0.93 mg/dL (0.55-1.02); eGFR NON BLACK RACES > 60 (>60)
[2024-10-13] MEDS ORDERED: CONSULT PHARMACY - POTASSIUM & MAGNESIUM XX SCH (08:00)
[2024-10-13] MEDS: KLOR-CON 10 MEQ TAB PO SCH (09:40)
[2024-10-13] MEDS: PRAVACHOL PO SCH (09:40)
[2024-10-13] MEDS: TOPROL XL PO SCH (09:40)
[2024-10-13] MEDS: BUSPAR PO SCH (09:40)
[2024-10-13] MEDS: LASIX PO SCH (09:40)
[2024-10-13] MEDS: MAG-OX TAB PO SCH (09:40)
[2024-10-13] MEDS: ASPIRIN 81 MG CHEWTAB PO SCH (09:40)
[2024-10-13] MEDS: FARXIGA PO SCH (10:31)
[2024-10-13] MEDS: TRESIBA U-100 INSULIN SC SCH (10:31)
[2024-10-13] MEDS: CYMBALTA PO SCH (10:32)
[2024-10-13] MEDS: PROTONIX TAB 40 MG PO SCH (10:32)
[2024-10-13] MEDS: TRICOR TAB 145 MG PO SCH (10:32)
[2024-10-13] MEDS: FLONASE NASAL SPRAY ENOSTRIL SCH (12:06)
[2024-10-13] MEDS: NORCO 5/325 MG TAB PO PRN (12:06)
[2024-10-13] MEDS: NEURONTIN CAP 400 MG PO SCH (14:18)
[2024-10-13] MEDS: DESYREL PO SCH (20:36)
[2024-10-14 06:59] LABS: MEAN PLATELET VOLUME 10.6 fL (7.4-11.0); RED CELL DISTRIBUTION WIDTH 14.9 % (11.6-16.5)
[2024-10-14 07:24] LABS: COR CA(FOR HYPOALB) 10.2 mg/dL (8.5-10.1); COR NA(FOR HYPERGLY) 138 mmol/L (136-145); CREATININE 0.68 mg/dL (0.55-1.02); eGFR NON BLACK RACES > 60 (>60)
--- NOTE | 2024-10-14 11:38 | PCM.PROG ---
Progress Note Progress Note for Day of Date of Exam: 10/14/24 Subjective Subjective: Patient seen at bedside, no acute events overnight. She is currently admitted for failure to thrive, hyperglycemia and hypomagnesemia. She is feeling better this morning. She did work with physical therapy. She would like to go to rehab due to worsening generalized weakness. Labs/imaging reviewed: - WBC 3.8 hemoglobin 12.1 potassium 3.7 creatinine 0.68 magnesium 1.6 Glucose 263 Plan: Continue hydration. Replace magnesium. Replace electrolytes as per protocol. Continue home medications. Continue sliding scale and long-acting insulin. Monitor glucose. Physical therapy as tolerated. CM to work on rehab placement on Wednesday. Monitor a.m. labs and imaging. Past Medical Family Social History Allergies: Allergies No Known Drug Allergies Allergy (Verified 10/12/24 12:16) Vital Signs and I&O's Vital Signs: Vital Signs Temperature 98.3 F Temperature 98.3 F Pulse Rate [Radial] 83 Pulse Rate [Radial] 76 Respiratory Rate 19 Respiratory Rate 17 Respiratory Rate 17 Blood Pressure [Right Arm] 140/64 Blood Pressure [Right Arm] 152/72 O2 Sat by Pulse Oximetry 97 O2 Sat by Pulse Oximetry 98 Intake and Output: Intake & Output 10/11/24 10/12/24 10/13/24 10/14/24 23:59 23:59 23:59 23:59 Intake Total 3702 / 3702 Output Total 400 / 400 1625 / 1625 950 / 950 Balance -400 / -400 2077 / 2077 -950 / -950 Physical Exam Oriented: Normal Nose: Normal Throat: Normal Respiratory: Normal Cardiovascular: Normal Auscultation: Bowel Sounds: Normal Palpation: Normal Tenderness: Normal Skin: Decreased [place] Musculoskeletal: Normal Psychiatric: Normal Mood Description: Calm Affect: Normal Speech Pattern: Clear and Appropriate Laboratory and Diagnostics 10/14/24 05:59 10/14/24 05:59 Labs: Laboratory WBC 3.8 X10^3/uL (3.6-10.0) 10/14/24 05:59 RBC 4.31 X10^6/uL (3.5-5.4) 10/14/24 05:59 Hgb 12.1 g/dL (12.0-16.0) 10/14/24 05:59 Hct 35.8 % (36.0-47.0) L 10/14/24 05:59 MCV 83.0 fL (80.0-100.0) 10/14/24 05:59 MCH 28.1 pg (27.0-34.0) 10/14/24 05:59 MCHC 33.9 g/dL (33.0-35.0) 10/14/24 05:59 RDW 14.9 % (11.6-16.5) 10/14/24 05:59 Plt Count 165 X10^3/uL (150.0-450.0) 10/14/24 05:59 MPV 10.6 fL (7.4-11.0) 10/14/24 05:59 Neut % (Auto) 66.2 % (42.0-75.0) 10/14/24 05:59 Lymph % (Auto) 17.8 % (21.0-51.0) L 10/14/24 05:59 [place] % (Auto) 13.8 % (0.0-13.0) H 10/14/24 05:59 Eos % (Auto) 1.7 % (0.9-2.9) 10/14/24 05:59 Baso % (Auto) 0.5 % (0.2-1.0) 10/14/24 05:59 Neut # (Auto) 2.5 x10^3/uL (2.2-4.8) 10/14/24 05:59 Lymph # (Auto) 0.7 X10^3/uL (1.3-2.9) L 10/14/24 05:59 [place] # (Auto) 0.5 x10^3/uL (0.3-0.8) 10/14/24 05:59 Eos # (Auto) 0.1 x10^3/uL (0.0-0.2) 10/14/24 05:59 Baso # (Auto) 0.0 X10^3/uL (0.0-0.1) 10/14/24 05:59 Absolute Nucleated RBC 0.1 /100WBC 10/14/24 05:59 Sodium 134 mmol/L (136-145) L 10/14/24 05:59 Corrected Sodium 138 mmol/L (136-145) 10/14/24 05:59 Potassium 3.7 mmol/L (3.5-5.1) 10/14/24 05:59 Chloride 100 mmol/L (98-107) 10/14/24 05:59 Carbon Dioxide 27.6 mmol/L (21-32) 10/14/24 05:59 BUN 11 mg/dL (7-18) 10/14/24 05:59 Creatinine 0.68 mg/dL (0.55-1.02) 10/14/24 05:59 Est GFR (MDRD) Af Amer > 60 (>60) 10/14/24 05:59 Est GFR (MDRD) Non-Af > 60 (>60) 10/14/24 05:59 Glucose 263 mg/dL (65-99) H 10/14/24 05:59 POC Glucose (mg/dL) 158 mg/dL (65-99) H 10/14/24 11:25 Calcium 8.4 mg/dL (8.5-10.1) L 10/14/24 05:59 Corrected Calcium 10.2 mg/dL (8.5-10.1) H 10/14/24 05:59 Magnesium 1.6 mg/dL (2.0-2.9) L 10/14/24 05:59 Total Bilirubin 0.20 mg/dL (0.2-1.0) 10/14/24 05:59 AST 35 Units/L (15-37) 10/14/24 05:59 ALT 32 Units/L (12-78) 10/14/24 05:59 Alkaline Phosphatase 181 Units/L (46-116) H 10/14/24 05:59 Troponin I High Sens 11.0 ng/L (4.0-60.0) 10/12/24 12:17 B-Natriuretic Peptide 42.5 pg/mL (0-79) 10/12/24 12:18 Total Protein 5.7 g/dL (6.4-8.2) L 10/14/24 05:59 Albumin 1.8 g/dL (3.4-5.0) L 10/14/24 05:59 Globulin 3.9 g/dL (2.5-4.5) 10/14/24 05:59 Albumin/Globulin Ratio 0.5 Ratio (1.1-2.1) L 10/14/24 05:59 Acetone, Semi-Quant Small (NEGATIVE) H 10/12/24 17:02 Plan (1) Adult failure to thrive: Status: Acute (2) Hyperosmolar hyperglycemic state (HHS): Status: Acute (3) Diabetes: Status: Chronic (4) Dehydration: Status: Acute (5) Generalized weakness: Status: Acute
[2024-10-14] MEDS: MAGNESIUM SULFATE 1 GRAM/100 mL PREMIX 1 G/100 ML BAG IV SCH (12:47)
[2024-10-14] MEDS ORDERED: CONSULT PHARMACY - POTASSIUM & MAGNESIUM XX SCH (16:00)
[2024-10-14] MEDS: MAG-OX TAB PO SCH (16:26)
[2024-10-14] MEDS: K-DUR TAB 20 MEQ PO SCH (16:47)
--- NOTE | 2024-10-15 11:30 | PCM.PROG ---
Progress Note Progress Note for Day of Date of Exam: 10/15/24 Subjective Subjective: Patient seen at bedside, no acute events overnight. She is currently admitted for failure to thrive, hyperglycemia and hypomagnesemia. She is feeling better this morning. She did work with physical therapy yesterday. She reports eating better. She would like to go to rehab due to worsening generalized weakness. Labs/imaging reviewed: - unable to draw labs today Plan: Continue PT/OT. Replace electrolytes as per protocol. Continue home medications. Continue sliding scale and long-acting insulin. Monitor glucose. P CM to work on rehab placement on Wednesday. Monitor a.m. labs and imaging. Past Medical Family Social History Allergies: Allergies No Known Drug Allergies Allergy (Verified 10/12/24 12:16) Vital Signs and I&O's Vital Signs: Vital Signs Temperature 98.3 F Temperature 99.2 F Temperature 97.6 F Pulse Rate [Radial] 96 Pulse Rate [Radial] 83 Respiratory Rate 20 Respiratory Rate 20 Respiratory Rate 19 Respiratory Rate 18 Blood Pressure [Right Arm] 146/65 Blood Pressure [Right Arm] 167/81 Blood Pressure [Right Arm] 139/63 O2 Sat by Pulse Oximetry 98 O2 Sat by Pulse Oximetry 98 Intake and Output: Intake & Output 10/12/24 10/13/24 10/14/24 10/15/24 23:59 23:59 23:59 23:59 Intake Total 3702 / 3702 900 / 900 0 / 0 Output Total 400 / 400 1625 / 1625 950 / 950 Balance -400 / -400 2077 / 2077 -50 / -50 0 / 0 Physical Exam Oriented: Normal Nose: Normal Throat: Normal Respiratory: Normal Cardiovascular: Normal Auscultation: Bowel Sounds: Normal Tenderness: Normal Skin: Decreased [place] Musculoskeletal: Normal Psychiatric: Normal Mood Description: Calm Affect: Normal Speech Pattern: Clear and Appropriate Laboratory and Diagnostics 10/14/24 05:59 10/14/24 05:59 Labs: Laboratory WBC 3.8 X10^3/uL (3.6-10.0) 10/14/24 05:59 RBC 4.31 X10^6/uL (3.5-5.4) 10/14/24 05:59 Hgb 12.1 g/dL (12.0-16.0) 10/14/24 05:59 Hct 35.8 % (36.0-47.0) L 10/14/24 05:59 MCV 83.0 fL (80.0-100.0) 10/14/24 05:59 MCH 28.1 pg (27.0-34.0) 10/14/24 05:59 MCHC 33.9 g/dL (33.0-35.0) 10/14/24 05:59 RDW 14.9 % (11.6-16.5) 10/14/24 05:59 Plt Count 165 X10^3/uL (150.0-450.0) 10/14/24 05:59 MPV 10.6 fL (7.4-11.0) 10/14/24 05:59 Neut % (Auto) 66.2 % (42.0-75.0) 10/14/24 05:59 Lymph % (Auto) 17.8 % (21.0-51.0) L 10/14/24 05:59 [place] % (Auto) 13.8 % (0.0-13.0) H 10/14/24 05:59 Eos % (Auto) 1.7 % (0.9-2.9) 10/14/24 05:59 Baso % (Auto) 0.5 % (0.2-1.0) 10/14/24 05:59 Neut # (Auto) 2.5 x10^3/uL (2.2-4.8) 10/14/24 05:59 Lymph # (Auto) 0.7 X10^3/uL (1.3-2.9) L 10/14/24 05:59 [place] # (Auto) 0.5 x10^3/uL (0.3-0.8) 10/14/24 05:59 Eos # (Auto) 0.1 x10^3/uL (0.0-0.2) 10/14/24 05:59 Baso # (Auto) 0.0 X10^3/uL (0.0-0.1) 10/14/24 05:59 Absolute Nucleated RBC 0.1 /100WBC 10/14/24 05:59 Sodium 134 mmol/L (136-145) L 10/14/24 05:59 Corrected Sodium 138 mmol/L (136-145) 10/14/24 05:59 Potassium 3.7 mmol/L (3.5-5.1) 10/14/24 05:59 Chloride 100 mmol/L (98-107) 10/14/24 05:59 Carbon Dioxide 27.6 mmol/L (21-32) 10/14/24 05:59 BUN 11 mg/dL (7-18) 10/14/24 05:59 Creatinine 0.68 mg/dL (0.55-1.02) 10/14/24 05:59 Est GFR (MDRD) Af Amer > 60 (>60) 10/14/24 05:59 Est GFR (MDRD) Non-Af > 60 (>60) 10/14/24 05:59 Glucose 263 mg/dL (65-99) H 10/14/24 05:59 POC Glucose (mg/dL) 114 mg/dL (65-99) H 10/15/24 10:55 Calcium 8.4 mg/dL (8.5-10.1) L 10/14/24 05:59 Corrected Calcium 10.2 mg/dL (8.5-10.1) H 10/14/24 05:59 Magnesium 1.6 mg/dL (2.0-2.9) L 10/14/24 05:59 Total Bilirubin 0.20 mg/dL (0.2-1.0) 10/14/24 05:59 AST 35 Units/L (15-37) 10/14/24 05:59 ALT 32 Units/L (12-78) 10/14/24 05:59 Alkaline Phosphatase 181 Units/L (46-116) H 10/14/24 05:59 Troponin I High Sens 11.0 ng/L (4.0-60.0) 10/12/24 12:17 B-Natriuretic Peptide 42.5 pg/mL (0-79) 10/12/24 12:18 Total Protein 5.7 g/dL (6.4-8.2) L 10/14/24 05:59 Albumin 1.8 g/dL (3.4-5.0) L 10/14/24 05:59 Globulin 3.9 g/dL (2.5-4.5) 10/14/24 05:59 Albumin/Globulin Ratio 0.5 Ratio (1.1-2.1) L 10/14/24 05:59 Acetone, Semi-Quant Small (NEGATIVE) H 10/12/24 17:02 Plan (1) Adult failure to thrive: Status: Acute (2) Hyperosmolar hyperglycemic state (HHS): Status: Acute (3) Diabetes: Status: Chronic (4) Dehydration: Status: Acute (5) Generalized weakness: Status: Acute
[2024-10-16] MEDS: RESTORIL CAP 15 MG PO PRN (00:14)
[2024-10-16 00:34] VITALS: O2SAT 99
[2024-10-16 04:00] VITALS: RESP 20
[2024-10-16 05:48] LABS: MEAN PLATELET VOLUME 10.4 fL (7.4-11.0); RED CELL DISTRIBUTION WIDTH 15.4 % (11.6-16.5)
[2024-10-16 06:08] LABS: COR CA(FOR HYPOALB) 10.2 mg/dL (8.5-10.1); CREATININE 0.83 mg/dL (0.55-1.02); eGFR NON BLACK RACES > 60 (>60)
[2024-10-16] MEDS ORDERED: CONSULT PHARMACY - POTASSIUM & MAGNESIUM XX SCH (07:00)
[2024-10-16 08:12] VITALS: BP 133/62; PULSE 93; TEMP 98
--- NOTE | 2024-10-16 08:20 | DR.H&P ---
H&P History & Physical for Day of: H&P Date: 10/12/24 Chief Complaint Chief Complaint: weakness, uncontrolled blood sugar History of Present Illness History of Present Illness: Patient with complaint of generalized weakness over the last 3 days. Patient was admitted over a week ago and states she improved but then 3 days ago she started feeling weak and not well in general. Patient states she has been struggling taking care of herself at home. Patient is using insulin at home but states she has not been able to control her sugar. From our discussion it sounds like she has not been following a good diabetic diet or maybe her medications need to be modified by her primary care doctor versus she may not be using her medications properly. She was alert and oriented x 3 and she did not have any focal weakness, dizziness, paresthesias or any other signs of CVA. Past Medical History Past Medical History: Anxiety, Arthritis, Coronary Artery Disease, CVA, Depression, Diabetes, Dyslipidemia, GERD, Hypertension and AR Past Surgical History Surgical History: Appendectomy, Cholecystectomy, Hysterectomy and Tonsillectomy Family History Family Medical History: Diabetes Mellitus, AR, Coronary Artery Disease and Hypertension Social History Does patient currently use any type of tobacco product: No Type of Tobacco Use: None Alcohol Use: None Drug Use: None Medications Home Medications: Home Medications Medication Instructions Recorded Confirmed Type buspirone 7.5 mg tablet 7.5 mg PO BID 09/08/2210/12 History gabapentin 800 mg tablet 800 mg PO TID 09/08/2210/12 History semaglutide 0.25 mg or 0.5 mg (2 2 mg subcut QWEEK 10/12/24 History mg/3 mL) subcutaneous pen injector (Ozempic) fluticasone propionate 50 1 spray intranasal DAILY PRN 05/08/24 10/12/24 History mcg/actuation nasal spray,suspension tizanidine 4 mg capsule 8 mg PO TID 07/18/24 5 History pravastatin 40 mg tablet 40 mg PO DAILY 08/03/2409/26 History cariprazine 1.5 mg capsule 1.5 mg PO QDAY 10/12/24 History (Vraylar) dapagliflozin propanediol 10 mg 10 mg PO QDAY 10/12/24 10/12/24 History tablet (Farxiga) duloxetine 60 mg capsule,delayed 60 mg PO QDAY 5 10/12/24 History release famotidine 20 mg tablet 20 mg PO BID 10/12/24 History fenofibrate nanocrystallized 145 145 mg PO QDAY 10/12/24 History mg tablet hydroxychloroquine 200 mg tablet 200 mg PO QDAY 10/12/24 History oxycodone myristate 9 mg capsule 9 mg PO BID 10/12/24 10/12/24 History sprinkle extended release 12 hr(DON'T CRUSH) (Xtampza ER) pantoprazole 40 mg tablet,delayed 40 mg PO QDAY 10/12/24 History release tramadol 50 mg tablet 50 mg PO BID PRN 10/12/24 History trazodone 100 mg tablet 100 mg PO QPM 10/12/2410/12 History Allergies Allergies Allergy/AdvReac Type Severity Reaction Status Date / Time No Known Drug Allergies Allergy Verified 10/12/24 12:16 Labs 10/16/24 05:07 10/16/24 05:07 Labs: Laboratory WBC 4.9 X10^3/uL (3.6-10.0) 10/16/24 05:07 RBC 4.44 X10^6/uL (3.5-5.4) 10/16/24 05:07 Hgb 12.5 g/dL (12.0-16.0) 10/16/24 05:07 Hct 36.8 % (36.0-47.0) 10/16/24 05:07 MCV 82.9 fL (80.0-100.0) 10/16/24 05:07 MCH 28.2 pg (27.0-34.0) 10/16/24 05:07 MCHC 34.0 g/dL (33.0-35.0) 10/16/24 05:07 RDW 15.4 % (11.6-16.5) 10/16/24 05:07 Plt Count 196 X10^3/uL (150.0-450.0) 10/16/24 05:07 MPV 10.4 fL (7.4-11.0) 10/16/24 05:07 Neut % (Auto) 47.8 % (42.0-75.0) 10/16/24 05:07 Lymph % (Auto) 37.8 % (21.0-51.0) 10/16/24 05:07 [place] % (Auto) 10.1 % (0.0-13.0) 10/16/24 05:07 Eos % (Auto) 3.8 % (0.9-2.9) H 10/16/24 05:07 Baso % (Auto) 0.5 % (0.2-1.0) 10/16/24 05:07 Neut # (Auto) 2.3 x10^3/uL (2.2-4.8) 10/16/24 05:07 Lymph # (Auto) 1.9 X10^3/uL (1.3-2.9) 10/16/24 05:07 [place] # (Auto) 0.5 x10^3/uL (0.3-0.8) 10/16/24 05:07 Eos # (Auto) 0.2 x10^3/uL (0.0-0.2) 10/16/24 05:07 Baso # (Auto) 0.0 X10^3/uL (0.0-0.1) 10/16/24 05:07 Absolute Nucleated RBC 0.3 /100WBC 10/16/24 05:07 Sodium 138 mmol/L (136-145) 10/16/24 05:07 Corrected Sodium TNP 10/16/24 05:07 Potassium 3.8 mmol/L (3.5-5.1) 10/16/24 05:07 Chloride 104 mmol/L (98-107) 10/16/24 05:07 Carbon Dioxide 28.5 mmol/L (21-32) 10/16/24 05:07 BUN 14 mg/dL (7-18) 10/16/24 05:07 Creatinine 0.83 mg/dL (0.55-1.02) 10/16/24 05:07 Est GFR (MDRD) Af Amer > 60 (>60) 10/16/24 05:07 Est GFR (MDRD) Non-Af > 60 (>60) 10/16/24 05:07 Glucose 100 mg/dL (65-99) H 10/16/24 05:07 POC Glucose (mg/dL) 106 mg/dL (65-99) H 10/16/24 05:01 Calcium 8.5 mg/dL (8.5-10.1) 10/16/24 05:07 Corrected Calcium 10.2 mg/dL (8.5-10.1) H 10/16/24 05:07 Magnesium 1.5 mg/dL (2.0-2.9) L 10/16/24 05:07 Total Bilirubin 0.20 mg/dL (0.2-1.0) 10/16/24 05:07 AST 25 Units/L (15-37) 10/16/24 05:07 ALT 29 Units/L (12-78) 10/16/24 05:07 Alkaline Phosphatase 158 Units/L (46-116) H 10/16/24 05:07 Troponin I High Sens 11.0 ng/L (4.0-60.0) 10/12/24 12:17 B-Natriuretic Peptide 42.5 pg/mL (0-79) 10/12/24 12:18 Total Protein 5.7 g/dL (6.4-8.2) L 10/16/24 05:07 Albumin 1.9 g/dL (3.4-5.0) L 10/16/24 05:07 Globulin 3.8 g/dL (2.5-4.5) 10/16/24 05:07 Albumin/Globulin Ratio 0.5 Ratio (1.1-2.1) L 10/16/24 05:07 Acetone, Semi-Quant Small (NEGATIVE) H 10/12/24 17:02 Review of Systems Constitutional: Weakness Eyes: No Symptoms Reported ENT: No Symptoms Reported Respiratory: Shortness of Breath Cardiovascular: No Symptoms Reported Gastrointestinal: Nausea Genitourinary: Frequency Musculoskeletal: Arm Pain and Back Pain Skin: No Symptoms Reported Neurological: No Symptoms Reported Physical Exam Vital Signs: Vital Signs Temperature 98.0 F Temperature 97.4 F Pulse Rate [Radial] 93 Pulse Rate [Radial] 80 Respiratory Rate 20 Respiratory Rate 20 Respiratory Rate 18 Respiratory Rate 16 Blood Pressure [Right Arm] 133/62 Blood Pressure [Right Arm] 132/63 O2 Sat by Pulse Oximetry 99 O2 Sat by Pulse Oximetry 99 Oriented: Normal Eyes: Normal Ear: Normal Nose: Normal Throat: Dry Respiratory: RLL Diminished and LLL Diminished Tenderness: Normal Skin: Decreased Turgur Musculoskeletal: Left, Shoulder and Back:Lumbar Psychiatric: Anxiety Mood Description: Anxious Affect: Anxious Speech Pattern: Clear and Appropriate Assessment/Plan (1) Dehydration: Status: Acute Plan: admit, iv hydration bs control, ssi control verify home medications bp control, pt/ot resp consult (2) Hyperosmolar hyperglycemic state (HHS): Status: Acute (3) Adult failure to thrive: Status: Acute (4) Diabetes: Status: Chronic (5) Generalized weakness: Status: Acute
[2024-10-16] MEDS: K-DUR TAB 20 MEQ PO SCH (08:53)
[2024-10-16] MEDS: MAG-OX TAB PO SCH (08:54)
[2024-10-16] MEDS: K-DUR TAB 20 MEQ PO ONE (09:05)
== END 2024-10-16 11:10 | disposition home health service (06) ==
LOC: ER 12:04 → MED/SURG 12:04
PROVIDERS: ADMIT Internal Medicine; ATTEND Internal Medicine
DX: L89.311 Pressure ulcer of right buttock, stage 1; R26.89 Other abnormalities of gait and mobility; I12.9 Hypertensive chronic kidney disease with stage 1 through stage 4 chronic kidney disease, or unspecified chronic kidney disease; K21.9 Gastro-esophageal reflux disease without esophagitis; I25.2 Old myocardial infarction; R42 Dizziness and giddiness; E86.0 Dehydration; R62.7 Adult failure to thrive; E78.5 Hyperlipidemia, unspecified; N18.9 Chronic kidney disease, unspecified; E11.00 Type 2 diabetes mellitus with hyperosmolarity without nonketotic hyperglycemic-hyperosmolar coma (NKHHC); R53.1 Weakness; E11.65 Type 2 diabetes mellitus with hyperglycemia; Z74.2 Need for assistance at home and no other household member able to render care; E83.42 Hypomagnesemia; Z86.73 Personal history of transient ischemic attack (TIA), and cerebral infarction without residual deficits; I25.10 Atherosclerotic heart disease of native coronary artery without angina pectoris; Z65.8 Other specified problems related to psychosocial circumstances; Z91.148 Patient's other noncompliance with medication regimen for other reason; M84.422G Pathological fracture, left humerus, subsequent encounter for fracture with delayed healing; Z79.4 Long term (current) use of insulin; F41.8 Other specified anxiety disorders; Z91.81 History of falling; J44.9 Chronic obstructive pulmonary disease, unspecified; L89.321 Pressure ulcer of left buttock, stage 1; Z58.89 Other problems related to physical environment; F32.89 Other specified depressive episodes